=== PATIENT | female | born 1940 | race Caucasian/White ===

== ENCOUNTER → 2019-12-21 12:15 | Outpatient (CLI) | payer MEDICARE, SELFPAY | PROVIDERS: Referring Provider Family Medicine; Visit Provider Family Medicine | DX: Z03.818 Encounter for observation for suspected exposure to other biological agents ruled out (principal) | CPT/HCPCS: 87635; G2023; U0004 ==

== ENCOUNTER → 2020-02-07 05:00 | Outpatient (REF) | payer MEDICARE, SELFPAY ==
[2020-02-07 08:23] LABS: Hematocrit 34.6 % (37-47); Hemoglobin 10.8 g/dL (12.0-15.0); Mean Corp Hgb Conc 31.2 g/dL (32-36); Mean Corpuscular Hgb 29.4 pg (27.0-32.0); Mean Corpuscular Volume 94.3 fL (81-99); Mean Platelet Vol. 10.6 fl (6.2-12.0); Platelet Count 269 K/mm3 (150-450); RBC Distribution Width CV 12.5 % (11.6-14.6); RBC Distribution Width SD 43.1 fl (35.1-43.9); Red Blood Count 3.67 M/mm3 (4.2-5.4); White Blood Count 6.3 K/mm3 (4.4-11.0)
[2020-02-07 08:35] LABS: ALB/GLOB Ratio 0.9 RATIO (0.9-2.4); AST(SGOT) 12 U/L (15-37); Alanine Aminotransfer ALT/SGPT 20 U/L (13-56); Albumin, Serum 3.1 g/dL (3.2-5.0); Alkaline Phosphatase 67 U/L (45-117); Anion Gap 4 (5-15); BUN 27 mg/dL (7-18); BUN/Creat Ratio 31.7 RATIO (10-20); Calcium,Total 9.2 mg/dL (8.5-10.1); Chloride 108 mmol/L (98-107); Creatinine, Serum 0.85 mg/dL (0.55-1.02); EST Glomerular Filtration Rate 68 mL/min (>60); Est Glom Filt Rate - Afr Amer 83 mL/min (>60); Globulin 3.4 g/dL (2.2-4.2); Glucose 123 mg/dL (74-106); Potassium 4.2 mmol/L (3.5-5.1); Protein, Total 6.5 g/dL (6.4-8.2); Sodium Level 140 mmol/L (136-145)
[2020-02-07 08:54] LABS: Vitamin D,25 Hydroxy 67.5 ng/mL
== END ==
LOC: OLS.ACH 05:00
PROVIDERS: Visit Provider Family Medicine
DX: E11.22 Type 2 diabetes mellitus with diabetic chronic kidney disease (principal); N18.3 Chronic kidney disease, stage 3 (moderate); D63.1 Anemia in chronic kidney disease
CPT/HCPCS: 36415; 80053; 82306; 83036; 85027

== ENCOUNTER → 2020-04-26 08:32 | Outpatient (REF) | payer MEDICARE, SELFPAY | LOC: LABSPEC 08:32 | DX: Z11.59 Encounter for screening for other viral diseases (principal) | CPT/HCPCS: 87635; U0003 ==

== ENCOUNTER → 2020-05-03 05:00 | Outpatient (REF) | payer MEDICARE, SELFPAY | LOC: OLS.ACH 05:00 | DX: Z11.59 Encounter for screening for other viral diseases (principal) | CPT/HCPCS: 87635; U0003 ==

== ENCOUNTER → 2020-05-08 11:06 | Outpatient (REF) | payer MEDICARE, SELFPAY | LOC: OLS.ACH 11:06 | PROVIDERS: Visit Provider Family Medicine | DX: Z11.59 Encounter for screening for other viral diseases (principal) | CPT/HCPCS: 87635; U0003 ==

== ENCOUNTER → 2020-05-10 23:00 | Outpatient (REF) | payer MEDICARE, SELFPAY ==
[2020-05-10 02:55] LABS: Probe Check PASS; Specimen Processing Control PASS
== END ==
LOC: OLS.ACH 23:00
DX: Z03.818 Encounter for observation for suspected exposure to other biological agents ruled out (principal)
CPT/HCPCS: 87635; U0003

== ENCOUNTER → 2020-05-11 07:05 | Outpatient (REF) | payer MEDICARE, SELFPAY | LOC: OLS.ACH 07:05 | DX: Z11.59 Encounter for screening for other viral diseases (principal) | CPT/HCPCS: 87635; U0003 ==

== ENCOUNTER → 2020-05-15 10:20 | Outpatient (REF) | payer MEDICARE, SELFPAY | LOC: OLS.ACH 10:20 | PROVIDERS: Visit Provider Family Medicine | DX: Z03.818 Encounter for observation for suspected exposure to other biological agents ruled out (principal) | CPT/HCPCS: 87635; U0003 ==

== ENCOUNTER → 2020-05-19 10:18 | Outpatient (REF) | payer MEDICARE, SELFPAY | LOC: OLS.ACH 10:18 | PROVIDERS: Referring Provider Family Medicine; Visit Provider Family Medicine | DX: Z03.818 Encounter for observation for suspected exposure to other biological agents ruled out (principal) | CPT/HCPCS: 87635; U0003 ==

== ENCOUNTER → 2020-05-22 14:06 | Outpatient (REF) | payer MEDICARE, SELFPAY | LOC: OLS.ACH 14:06 | PROVIDERS: Referring Provider Family Medicine; Visit Provider Family Medicine | DX: Z03.818 Encounter for observation for suspected exposure to other biological agents ruled out (principal) | CPT/HCPCS: 87635; U0003 ==

== ENCOUNTER → 2020-07-25 08:22 | Outpatient (REF) | payer MEDICARE, SELFPAY | LOC: OLS.ACH 08:22 | PROVIDERS: PCP Family Medicine; Visit Provider Family Medicine | DX: Z03.818 Encounter for observation for suspected exposure to other biological agents ruled out (principal) | CPT/HCPCS: 87635; U0003 ==

== ENCOUNTER → 2020-08-08 08:44 | Outpatient (REF) | payer MEDICARE, SELFPAY | LOC: OLS.ACH 08:44 | PROVIDERS: PCP Family Medicine; Referring Provider Family Medicine; Visit Provider Family Medicine | DX: Z03.818 Encounter for observation for suspected exposure to other biological agents ruled out (principal) | CPT/HCPCS: 87635; U0003 ==

== ENCOUNTER → 2020-08-22 17:17 | Outpatient (REF) | payer MEDICARE, SELFPAY | LOC: OLS.ACH 17:17 | PROVIDERS: PCP Family Medicine; Referring Provider Family Medicine; Visit Provider Family Medicine | DX: Z03.818 Encounter for observation for suspected exposure to other biological agents ruled out (principal) | CPT/HCPCS: 87635; U0005; U0003 ==

== ENCOUNTER → 2020-09-05 09:42 | Outpatient (REF) | payer MEDICARE, SELFPAY | LOC: OLS.ACH 09:42 | PROVIDERS: PCP Family Medicine | DX: Z03.818 Encounter for observation for suspected exposure to other biological agents ruled out (principal) | CPT/HCPCS: 87635; U0003 ==

== ENCOUNTER → 2020-10-03 12:11 | Outpatient (REF) | payer MEDICARE, SELFPAY | LOC: OLS.ACH 12:11 | PROVIDERS: PCP Family Medicine; Referring Provider Family Medicine; Visit Provider Family Medicine | DX: Z03.818 Encounter for observation for suspected exposure to other biological agents ruled out (principal) | CPT/HCPCS: 87635; U0005; U0003 ==

== ENCOUNTER → 2020-10-13 05:00 | Outpatient (REF) | payer MEDICARE, SELFPAY ==
[2020-10-13 08:03] LABS: Hematocrit 34.4 % (37-47); Hemoglobin 11.7 g/dL (12.0-15.0); Mean Corpuscular Volume 91.2 fL (81-99); Mean Platelet Vol. 10.2 fl (6.2-12.0); Platelet Count 275 K/mm3 (150-450); RBC Distribution Width CV 12.8 % (11.6-14.6); RBC Distribution Width SD 41.8 fl (35.1-43.9); Red Blood Count 3.77 M/mm3 (4.2-5.4)
[2020-10-13 08:18] LABS: Hemoglobin A1c 7.5 % (3.8-5.6)
[2020-10-13 08:26] LABS: ALB/GLOB Ratio 0.9 RATIO (0.9-2.4); AST(SGOT) 15 U/L (15-37); Alanine Aminotransfer ALT/SGPT 18 U/L (13-56); Albumin, Serum 3.3 g/dL (3.2-5.0); Alkaline Phosphatase 78 U/L (45-117); Anion Gap 4 (5-15); BUN 25 mg/dL (7-18); BUN/Creat Ratio 25.8 RATIO (10-20); Calcium,Total 9.3 mg/dL (8.5-10.1); Chloride 109 mmol/L (98-107); Cholesterol 125 mg/dL (200); Creatinine, Serum 0.97 mg/dL (0.55-1.02); EST Glomerular Filtration Rate 59 mL/min (>60); Est Glom Filt Rate - Afr Amer 71 mL/min (>60); Globulin 3.5 g/dL (2.2-4.2); Glucose 143 mg/dL (74-106); High Density Lipoprotein 76 mg/dL; Potassium 4.7 mmol/L (3.5-5.1); Protein, Total 6.8 g/dL (6.4-8.2); Sodium Level 141 mmol/L (136-145); Thyroid Stim Hormone (TSH) 2.02 uIU/mL (0.358-3.74); Triglycerides 77 mg/dL; Very Low Density Lipoprotein 15 mg/dL (5-40)
[2020-10-13 09:11] LABS: Vitamin D,25 Hydroxy 59.1 ng/mL
== END ==
LOC: OLS.ACH 05:00
PROVIDERS: PCP Family Medicine
DX: E11.22 Type 2 diabetes mellitus with diabetic chronic kidney disease (principal); I12.9 Hypertensive chronic kidney disease with stage 1 through stage 4 chronic kidney disease, or unspecified chronic kidney disease; D64.9 Anemia, unspecified; N18.30 Chronic kidney disease, stage 3 unspecified
CPT/HCPCS: 36415; 80053; 80061; 82306; 83036; 84443; 85027

== ENCOUNTER → 2020-10-17 10:00 | Outpatient (REF) | payer MEDICARE, SELFPAY | LOC: OLS.ACH 10:00 | PROVIDERS: PCP Family Medicine | DX: Z03.818 Encounter for observation for suspected exposure to other biological agents ruled out (principal) | CPT/HCPCS: 87635; U0005; U0003 ==

== ENCOUNTER → 2021-02-05 05:00 | Outpatient (REF) | payer MEDICARE, SELFPAY ==
[2021-02-05 10:18] LABS: Absolute Lymphocyte Count 2.09 X10^3/uL (0.83-4.51); Absolute Neutrophil Count 4.2 X10^3/uL (2.0-7.7); Basophil# 0.03 X10^3/uL; Basophil% 0.4 % (0-1); Eosinophil# 0.57 X10^3/uL; Eosinophils% 7.6 % (0-5); Hematocrit 34.3 % (37-47); Hemoglobin 10.9 g/dL (12.0-15.0); Lymphocyte # 2.09 X10^3/ul (0.83-4.51); Lymphocyte % 27.7 % (19-41); Mean Corp Hgb Conc 31.8 g/dL (32-36); Mean Corpuscular Volume 91.2 fL (81-99); Mean Platelet Vol. 10.8 fl (6.2-12.0); Monocyte# 0.62 X10^3/uL; Monocyte% 8.2 % (0-10); NRBC Flagged by Analyzer 0 % (0-5); Neutrophil % 55.7 % (47-70); Platelet Count 303 K/mm3 (150-450); RBC Distribution Width CV 12.8 % (11.6-14.6); RBC Distribution Width SD 42.1 fl (35.1-43.9); Red Blood Count 3.76 M/mm3 (4.2-5.4); White Blood Count 7.5 K/mm3 (4.4-11.0)
[2021-02-05 11:02] LABS: AST(SGOT) 14 U/L (15-37); Alanine Aminotransfer ALT/SGPT 16 U/L (13-56); Albumin, Serum 3.4 g/dL (3.2-5.0); Alkaline Phosphatase 79 U/L (45-117); Anion Gap 7 (5-15); BUN 30 mg/dL (7-18); BUN/Creat Ratio 30.8 RATIO (10-20); Chloride 107 mmol/L (98-107); Creatinine, Serum 0.97 mg/dL (0.55-1.02); EST Glomerular Filtration Rate 58 mL/min (>60); Est Glom Filt Rate - Afr Amer 71 mL/min (>60); Globulin 3.4 g/dL (2.2-4.2); Glucose 136 mg/dL (74-106); Potassium 4.5 mmol/L (3.5-5.1); Protein, Total 6.8 g/dL (6.4-8.2); Sodium Level 140 mmol/L (136-145); Thyroid Stim Hormone (TSH) 1.38 uIU/mL (0.358-3.74)
[2021-02-05 11:42] LABS: Vitamin D,25 Hydroxy 46.3 ng/mL
== END ==
LOC: OLS.ACH 05:00
PROVIDERS: PCP Family Medicine
DX: I12.9 Hypertensive chronic kidney disease with stage 1 through stage 4 chronic kidney disease, or unspecified chronic kidney disease (principal); E11.22 Type 2 diabetes mellitus with diabetic chronic kidney disease; D63.1 Anemia in chronic kidney disease; E01.1 Iodine-deficiency related multinodular (endemic) goiter; M15.0 Primary generalized (osteo)arthritis; E55.9 Vitamin D deficiency, unspecified
CPT/HCPCS: 36415; 80053; 82306; 83036; 84443; 85025

== ENCOUNTER → 2021-06-04 04:00 | Outpatient (REF) | payer MEDICARE, SELFPAY ==
[2021-06-04 08:31] LABS: Absolute Lymphocyte Count 2.27 X10^3/uL (0.83-4.51); Absolute Neutrophil Count 3.7 X10^3/uL (2.0-7.7); Basophil# 0.03 X10^3/uL; Basophil% 0.4 % (0-1); Eosinophil# 0.54 X10^3/uL; Eosinophils% 7.6 % (0-5); Hematocrit 35.2 % (37-47); Lymphocyte # 2.27 X10^3/ul (0.83-4.51); Lymphocyte % 31.9 % (19-41); Mean Corp Hgb Conc 31.3 g/dL (32-36); Mean Corpuscular Hgb 28.9 pg (27.0-32.0); Mean Corpuscular Volume 92.6 fL (81-99); Mean Platelet Vol. 10.6 fl (6.2-12.0); Monocyte# 0.55 X10^3/uL; Monocyte% 7.7 % (0-10); NRBC Flagged by Analyzer 0 % (0-5); Neutrophil % 52.1 % (47-70); Platelet Count 282 K/mm3 (150-450); RBC Distribution Width CV 12.4 % (11.6-14.6); RBC Distribution Width SD 42.4 fl (35.1-43.9); White Blood Count 7.1 K/mm3 (4.4-11.0)
[2021-06-04 09:00] LABS: ALB/GLOB Ratio 0.8 RATIO (0.9-2.4); AST(SGOT) 12 U/L (15-37); Alanine Aminotransfer ALT/SGPT 19 U/L (13-56); Albumin, Serum 2.9 g/dL (3.2-5.0); Alkaline Phosphatase 73 U/L (45-117); Anion Gap 6 (5-15); BUN 27 mg/dL (7-18); BUN/Creat Ratio 26.2 RATIO (10-20); Calcium,Total 9.1 mg/dL (8.5-10.1); Chloride 108 mmol/L (98-107); Creatinine, Serum 1.03 mg/dL (0.55-1.02); EST Glomerular Filtration Rate 55 mL/min (>60); Est Glom Filt Rate - Afr Amer 66 mL/min (>60); Globulin 3.6 g/dL (2.2-4.2); Glucose 162 mg/dL (74-106); Potassium 4.8 mmol/L (3.5-5.1); Protein, Total 6.5 g/dL (6.4-8.2); Sodium Level 140 mmol/L (136-145); Thyroid Stim Hormone (TSH) 2.47 uIU/mL (0.358-3.74)
[2021-06-04 09:40] LABS: Hemoglobin A1c 8.5 % (3.8-5.6)
== END ==
LOC: OLS.ACH 04:00
PROVIDERS: PCP Family Medicine
DX: E11.22 Type 2 diabetes mellitus with diabetic chronic kidney disease (principal); N18.9 Chronic kidney disease, unspecified; D63.1 Anemia in chronic kidney disease; R01.1 Cardiac murmur, unspecified
CPT/HCPCS: 36415; 80053; 83036; 84443; 85025

== ENCOUNTER → 2021-11-07 | Outpatient (REF) | payer MEDICARE, SELFPAY ==
[2021-11-07 07:40] LABS: Hematocrit 32.9 % (37-47); Hemoglobin 10.7 g/dL (12.0-15.0); Mean Corp Hgb Conc 32.5 g/dL (32-36); Mean Corpuscular Hgb 29.7 pg (27.0-32.0); Mean Corpuscular Volume 91.4 fL (81-99); Mean Platelet Vol. 10.5 fl (6.2-12.0); Platelet Count 302 K/mm3 (150-450); RBC Distribution Width CV 12.4 % (11.6-14.6); RBC Distribution Width SD 41.6 fl (35.1-43.9); White Blood Count 8.1 K/mm3 (4.4-11.0)
[2021-11-07 08:02] LABS: ALB/GLOB Ratio 0.9 RATIO (0.9-2.4); AST(SGOT) 15 U/L (15-37); Alanine Aminotransfer ALT/SGPT 18 U/L (13-56); Albumin, Serum 3.1 g/dL (3.2-5.0); Alkaline Phosphatase 68 U/L (45-117); Anion Gap 3 (5-15); BUN 28 mg/dL (7-18); BUN/Creat Ratio 26.9 RATIO (10-20); Calcium,Total 9.1 mg/dL (8.5-10.1); Chloride 110 mmol/L (98-107); Creatinine, Serum 1.04 mg/dL (0.55-1.02); EST Glomerular Filtration Rate 54 mL/min (>60); Est Glom Filt Rate - Afr Amer 65 mL/min (>60); Globulin 3.3 g/dL (2.2-4.2); Glucose 177 mg/dL (74-106); Potassium 4.7 mmol/L (3.5-5.1); Protein, Total 6.4 g/dL (6.4-8.2); Sodium Level 140 mmol/L (136-145)
[2021-11-07 08:22] LABS: Hemoglobin A1c 8.8 % (3.8-5.6)
== END | disposition home or self-care (01) ==
LOC: OLS.ACH 04:00
PROVIDERS: PCP Family Medicine
DX: E11.9 Type 2 diabetes mellitus without complications (principal)
CPT/HCPCS: 36415; 80053; 83036; 84443; 85027

== ENCOUNTER → 2022-05-27 | Outpatient (REF) | payer MEDICARE, SELFPAY ==
[2022-05-27 07:30] LABS: Hematocrit 33.9 % (37-47); Hemoglobin 10.7 g/dL (12.0-15.0); Mean Corp Hgb Conc 31.6 g/dL (32-36); Mean Corpuscular Hgb 29.7 pg (27.0-32.0); Mean Corpuscular Volume 94.2 fL (81-99); Mean Platelet Vol. 10.6 fl (6.2-12.0); Platelet Count 293 K/mm3 (150-450); RBC Distribution Width CV 12.5 % (11.6-14.6); RBC Distribution Width SD 43.5 fl (35.1-43.9); White Blood Count 8.4 K/mm3 (4.4-11.0)
[2022-05-27 08:06] LABS: AST(SGOT) 14 U/L (15-37); Alanine Aminotransfer ALT/SGPT 19 U/L (13-56); Albumin, Serum 3.2 g/dL (3.2-5.0); Alkaline Phosphatase 65 U/L (45-117); Anion Gap 9 (5-15); BUN 32 mg/dL (7-18); BUN/Creat Ratio 29.9 RATIO (10-20); Calcium,Total 9.2 mg/dL (8.5-10.1); Chloride 106 mmol/L (98-107); Creatinine, Serum 1.07 mg/dL (0.55-1.02); EST Glomerular Filtration Rate 52 mL/min (>60); Est Glom Filt Rate - Afr Amer 63 mL/min (>60); Globulin 3.2 g/dL (2.2-4.2); Glucose 205 mg/dL (74-106); Potassium 4.3 mmol/L (3.5-5.1); Protein, Total 6.4 g/dL (6.4-8.2); Sodium Level 139 mmol/L (136-145)
[2022-05-27 08:38] LABS: Vitamin D,25 Hydroxy 70.8 ng/mL
== END ==
LOC: OLS.ACH 05:00
PROVIDERS: PCP Family Medicine
DX: E11.22 Type 2 diabetes mellitus with diabetic chronic kidney disease (principal); M15.0 Primary generalized (osteo)arthritis; N18.9 Chronic kidney disease, unspecified; E55.9 Vitamin D deficiency, unspecified
CPT/HCPCS: 36415; 80053; 82306; 85027

== ENCOUNTER → 2022-11-04 | Outpatient (REF) | payer MEDICARE, SELFPAY ==
[2022-11-04 10:46] LABS: Hematocrit 36.4 % (37-47); Hemoglobin 11.3 g/dL (12.0-15.0); Mean Corpuscular Hgb 29.4 pg (27.0-32.0); Mean Corpuscular Volume 94.5 fL (81-99); Mean Platelet Vol. 10.8 fl (6.2-12.0); Platelet Count 313 K/mm3 (150-450); RBC Distribution Width CV 13.2 % (11.6-14.6); RBC Distribution Width SD 45.4 fl (35.1-43.9); Red Blood Count 3.85 M/mm3 (4.2-5.4); White Blood Count 9.1 K/mm3 (4.4-11.0)
[2022-11-04 11:07] LABS: Vitamin D,25 Hydroxy 66.2 ng/mL
[2022-11-04 11:11] LABS: ALB/GLOB Ratio 0.9 RATIO (0.9-2.4); AST(SGOT) 23 U/L (15-37); Alanine Aminotransfer ALT/SGPT 33 U/L (13-56); Albumin, Serum 3.3 g/dL (3.2-5.0); Alkaline Phosphatase 73 U/L (45-117); Anion Gap 3 (5-15); BUN 30 mg/dL (7-18); BUN/Creat Ratio 31.4 RATIO (10-20); Calcium,Total 9.2 mg/dL (8.5-10.1); Chloride 110 mmol/L (98-107); Cholesterol 125 mg/dL (200); Creatinine, Serum 0.95 mg/dL (0.55-1.02); EST Glomerular Filtration Rate 60 mL/min (>60); Est Glom Filt Rate - Afr Amer 72 mL/min (>60); Globulin 3.6 g/dL (2.2-4.2); Glucose 129 mg/dL (74-106); High Density Lipoprotein 63 mg/dL; Potassium 4.5 mmol/L (3.5-5.1); Protein, Total 6.9 g/dL (6.4-8.2); Sodium Level 142 mmol/L (136-145); Thyroid Stim Hormone (TSH) 2.48 uIU/mL (0.358-3.74); Triglycerides 66 mg/dL; Very Low Density Lipoprotein 13 mg/dL (5-40)
== END ==
LOC: OLS.ACH2 04:00
PROVIDERS: PCP Family Medicine
DX: E11.22 Type 2 diabetes mellitus with diabetic chronic kidney disease (principal); I12.9 Hypertensive chronic kidney disease with stage 1 through stage 4 chronic kidney disease, or unspecified chronic kidney disease; D63.1 Anemia in chronic kidney disease; N18.9 Chronic kidney disease, unspecified
CPT/HCPCS: 36415; 80053; 80061; 82306; 84443; 85027

== ENCOUNTER → 2023-05-05 | Outpatient (REF) | payer MEDICARE, SELFPAY ==
[2023-05-05 09:10] LABS: Hematocrit 33.5 % (37-47); Hemoglobin 10.5 g/dL (12.0-15.0); Mean Corp Hgb Conc 31.3 g/dL (32-36); Mean Corpuscular Hgb 29.7 pg (27.0-32.0); Mean Corpuscular Volume 94.6 fL (81-99); Mean Platelet Vol. 10.8 fl (6.2-12.0); Platelet Count 283 K/mm3 (150-450); RBC Distribution Width CV 12.5 % (11.6-14.6); RBC Distribution Width SD 43.7 fl (35.1-43.9); Red Blood Count 3.54 M/mm3 (4.2-5.4); White Blood Count 8.2 K/mm3 (4.4-11.0)
[2023-05-05 09:24] LABS: Vitamin D,25 Hydroxy 57.1 ng/mL
[2023-05-05 09:33] LABS: AST(SGOT) 20 U/L (15-37); Alanine Aminotransfer ALT/SGPT 34 U/L (13-56); Albumin, Serum 3.2 g/dL (3.2-5.0); Alkaline Phosphatase 65 U/L (45-117); Anion Gap 6 (5-15); BUN 35 mg/dL (7-18); BUN/Creat Ratio 37.4 RATIO (10-20); Chloride 109 mmol/L (98-107); Cholesterol 115 mg/dL (200); Creatinine, Serum 0.94 mg/dL (0.55-1.02); EST Glomerular Filtration Rate 61 mL/min (>60); Est Glom Filt Rate - Afr Amer 74 mL/min (>60); Globulin 3.3 g/dL (2.2-4.2); Glucose 131 mg/dL (74-106); High Density Lipoprotein 62 mg/dL; Potassium 4.1 mmol/L (3.5-5.1); Protein, Total 6.5 g/dL (6.4-8.2); Sodium Level 140 mmol/L (136-145); Thyroid Stim Hormone (TSH) 2.83 uIU/mL (0.358-3.74); Triglycerides 90 mg/dL; Very Low Density Lipoprotein 18 mg/dL (5-40)
== END ==
LOC: OLS.ACH2 04:00
PROVIDERS: PCP Family Medicine
DX: I12.9 Hypertensive chronic kidney disease with stage 1 through stage 4 chronic kidney disease, or unspecified chronic kidney disease (principal); D63.1 Anemia in chronic kidney disease; E11.22 Type 2 diabetes mellitus with diabetic chronic kidney disease; N18.9 Chronic kidney disease, unspecified; E55.9 Vitamin D deficiency, unspecified
CPT/HCPCS: 36415; 80053; 80061; 82306; 84443; 85027

== ENCOUNTER → 2023-08-15 | Outpatient (REF) | payer MEDICARE, SELFPAY ==
--- OUTSIDE RECORDS SUMMARY | 2023-08-15 04:28 | XMS RPT_ITS | CCD ---
Author Name Unknown Address Formerly [facility] [address] [place] [address] Organization [facility] Care Team Providers Care Retail Security Professional Name Role Phone DR ANTONIO HYDE DO Primary Care Physician Allergies Allergy Classification Reported Allergen(s) Allergy Type Date of Onset Reaction(s) Facility (1 source) Adhesive bandage Allergy to substance [facility] (1 source) Morphine; Translations: [morphine] Drug Allergy [facility] (1 source) Penicillin; Translations: [penicillin] Drug Allergy [facility] (1 source) [place] Propensity to adverse reactions to food [facility] (1 source) Sulfonamides (Antibiotic); Translations: [sulfa drugs] Drug allergy [facility] (1 source) Aloes - chemical (substance); Translations: [aloe derivatives] Drug allergy [facility] (disorder) [facility] Medications Current Medications Medication Drug Class(es) Dates Sig (Normalized) Sig (Original) atenolol 25 mg oral tablet (1 source) beta-Adrenergic Melissa Start: 02-14-2022 take 1 tablet by mouth once daily atenolol 25 mg oral tablet See Instructions, TAKE 1 TABLET BY MOUTH EVERY DAY, # 90 tab(s), 4 Refill(s), Pharmacy: [facility]acy #[id number], 152, cm, 02/14/22 13:32:00 EDT, Height, kg, 02/14/22 13:32:00 EDT, Dosing Weight Start Date: 02/14/22 Status: Ordered atorvastatin 10 mg oral tablet (1 source) HMG-CoA Reductase Inhibitor Start: 02-14-2022 atorvastatin 10 mg oral tablet Dose : 10 mg = 1 tab(s), Oral, qDay, # 90 tab(s), 3 Refill(s), Pharmacy: [facility]/pharmacy #[id number], 152, cm, 02/14/22 13:32:00 EDT, Height, kg, 02/14/22 13:32:00 EDT, Dosing Weight Start Date: 02/14/22 Status: Ordered calcium carbonate 1500 mg oral tablet (1 source) Start: 12-31-2018 calcium (as carbonate) 600 mg oral tablet Dose : 600 mg = 1 tab(s), Oral, qDay, 0 Refill(s) Start Date: 12/31/18 Status: Ordered fluticasone propionate 0.05 mg/actuat metered dose nasal spray (1 source) Corticosteroid Start: 06-12-2021 take 1 dose nasal route once daily in the morning Flonase 50 mcg/inh nasal spray Dose = 1 spray(s), Nostril, each, qAM, # 1 EA, 3 Refill(s), [id number], 152, cm, 06/12/21 13:29:00 EDT, Height, kg, 06/12/21 13:29:00 EDT, Dosing Weight Start Date: 06/12/21 Status: Ordered glipiZIDE er 2.5 mg 24 hr extended release oral tablet (1 source) Sulfonylurea Start: 02-28-2022 glipiZIDE 2.5 mg oral tablet, extended release Dose : 2.5 mg = 1 tab(s), Oral, qDayM, # 30 tab(s), 0 Refill(s), [id number], 152, cm, 02/14/22 13:32:00 EDT, Height Start Date: 02/28/22 Status: Ordered lisinopril 5 mg oral tablet (1 source) Angiotensin Converting Enzyme Inhibitor Start: 10-11-2021 lisinopril 5 mg oral tablet Dose : 5 mg = 1 tab(s), Oral, qDay, # 90 tab(s), 3 Refill(s), Pharmacy: [facility]/pharmacy #[id number], 152, cm, 10/11/21 14:29:00 EST, Height, kg, 10/11/21 14:29:00 EST, Dosing Weight Start Date: 10/11/21 Status: Ordered metFORMIN hydrochloride 500 mg oral tablet (1 source) Biguanide Start: 11-08-2021 MetFORMIN (Eqv-Glucophage XR) 500 mg oral tablet, EXTENDED RELEASE Dose : 1,000 mg = 2 tab(s), Oral, qDay, # 180 tab(s), 1 Refill(s), [id number], 152, cm, 10/11/21 14:29:00 EST, Height, kg, 10/11/21 14:29:00 EST, Dosing Weight Start Date: 11/08/21 Status: Ordered montelukast 10 mg oral tablet (1 source) Leukotriene Receptor Antagonist Start: 02-14-2022 montelukast 10 mg oral tablet Dose : 10 mg = 1 tab(s), Oral, qDay, # 90 tab(s), 3 Refill(s), Pharmacy: [facility]/pharm[facility] #[id number], 152, cm, 02/14/22 13:32:00 EDT, Height, kg, 02/14/22 13:32:00 EDT, Dosing Weight Start Date: 02/14/22 Status: Ordered nystatin 100 unt/mg topical powder (1 source) Polyene Antifungal Start: 02-09-2021 nystatin 100,000 units/g topical powder Apply 1 madai, Topical, TID, # 1 EA, 1 Refill(s), [id number], Powder, 152, cm, 12/19/20 13:24:00 EDT, Height, 116.6, kg, 02/09/21 13:30:00 EDT, Dosing Weight Start Date: 02/09/21 Status: Ordered omeprazole 20 mg delayed release oral capsule (1 source) Proton Pump Inhibitor Start: 06-12-2021 omeprazole 20 mg oral delayed release capsule Dose : 20 mg = 1 cap(s), Oral, qDay, # 90 cap(s), 3 Refill(s), Pharmacy: [facility]/pharm[facility] #[id number], 152, cm, 06/12/21 13:29:00 EDT, Height, kg, 06/12/21 13:29:00 EDT, Dosing Weight Start Date: 06/12/21 Status: Ordered trihexyphenidyl hydrochloride 2 mg oral tablet (1 source) Start: 02-14-2022 trihexyphenidyl 2 mg oral tablet Dose : 2 mg = 1 tab(s), Oral, TID, TAKE 1 TABLET BY MOUTH THREE TIMES A DAY, # 270 tab(s), 3 Refill(s), Pharmacy: [facility]/pharmacy #[id number], 152, cm, 02/14/22 13:32:00 EDT, Height, kg, 02/14/22 13:32:00 EDT, Dosing Weight Start Date: 02/14/22 Status: Ordered Vitamin D3 2000 intl units oral tablet (1 source) Start: 12-31-2018 Vitamin D3 2000 intl units oral tablet Dose : 2,000 unit(s) = 1 tab(s), Oral, Daily, 0 Refill(s) Start Date: 12/31/18 Status: Ordered Completed/Discontinued Medications Medication Drug Class(es) Dates Sig (Normalized) Sig (Original) fluticasone / salmeterol (1 source) Corticosteroid, beta2-Adrenergic Agonist Start: 10-11-2021 take 1 puff(s) by mouth twice daily Advair Diskus 250 mcg-50 mcg inhalation powder Dose = 1 puff(s), Inhalation, BID, TAKE 1 PUFF BY MOUTH TWICE A DAY, # 3 EA, 1 Refill(s), Pharmacy: [id number], 152, cm, 10/11/21 14:29:00 EST, Height, kg, 10/11/21 14:29:00 EST, Dosing Weight Start Date: 10/11/21 Status: Ordered Problems Problem Classification Problem Date Documented Da te Episodic/Chronic Acute myocardial infarction (1 source) Myocardial infarction 10-13-2019 Chronic Results Test Name Value Interpretation Reference Range Facil ity Encounters Encounter Date Encounter Type Care Provider Facility Start: 03-20-2022 End: 03-20-2022 Patient encounter procedure MARC DOYLE MD [facility] Procedures Date Procedure Procedure Detail Performing Clinician Start: 08-11-1984 Appendix structure ( body structure) MARC DOYLE MD Start: 08-11-1984 Hysterectomy WESLEY DOYLE MD Bone densty 1/> site s dual photon absorptiometr MARC DOYLE MD Immunizations Immunization Date Immunization Notes Care Provider Fa cility 06-08-2021 SARS-CoV-2 (COVID-19 ) [id number] vaccine MARC DOYLE MD [facility] [place] Social History Date Type Detail Facility Start: 12-31-2018 Tobacco smoking status Never s moked tobacco (finding) [facility] Sex Assigned At Female [facility] Progress note 10-12-2020 Note Date & Type Note Facility 10-12-2020 Note HNO ID: [id number] Author: Tremaine Boss Service: ? Author Type: Paint Dipper Type: Progress Notes Filed: 10/17/2020 9:18 AM Note Text: POPULATION HEALTH NAVIGATION OUTREACH Action/FYI Attempted to contact patient on 10/12/2020 Result: no answer at patient's phone - mailed letter Contact made with patient or family member? NO Pt identified by name and : NO Outreach Outcome/Action Unable to reach patient: Phone number not valid / voicemail full Letter mailed Reason for Outreach Attribution: Provider Off-boarding Payer: Payor: [employer] MEDICARE / Plan: [employer] PLUS / Product Type: HMO / Care Gap Reviewed:: Annual Wellness visit Diabetic Eye Exam HBA1C Nephropathy (Albumin/Creatinine) Urine Flu vaccine Reminder: Reminder note to check Health Maintenance for items below Health Maintenance items due: DIABETIC FOOT EXAM due on 1950 DEPRESSION SCREENING due on 1952 SHINGRIX VACCINE(1 of 2) due on 1990 ADVANCE DIRECTIVE DISCUSSION due on 2005 DILATED RETINAL EXAM due on 11/30/2014 HBA1C due on 06/15/2016 URINE ALBUMIN:CREATININE RATIO due on 12/13/2016 LDL CHOLESTEROL due on 12/13/2016 INFLUENZA(1) due on 04/11/2020 Advanced Directives Completed: Have you ever planned for future healthcare decisions with a power of ordnance officer, living will, or advance directives? N/a Referrals: N/A Message Sent to Practice: NO Navigation Signature: Tremaine Boss, Population Health Navigator October 12, 2020 3:08 PM [facility] Progress note 10-11-2020 Note Date & Type Note Facility 10-11-2020 Note HNO ID: [id number] Author: Tremaine Boss Service: ? Author Type: Paint Dipper Type: Progress Notes Filed: 10/12/2020 3:10 PM Note Text: POPULATION HEALTH NAVIGATION OUTREACH Action/FYI Attempted to contact patient on 10/11/2020 Result: no answer at patient's phone - in regards to realigning patient with a new PCP, if patient does not already have an existing one - if patient has existing PCP, PCP field needs updated Contact made with patient or family member? NO Pt identified by name and : NO Outreach Outcome/Action Unable to reach patient: Phone number not valid / voicemail full Reason for Outreach Attribution: Provider Off-boarding Payer: Payor: [employer] MEDICARE / Plan: [employer] / Product Type: HMO / Care Gap Reviewed:: Annual Wellness visit Diabetic Eye Exam HBA1C Nephropathy (Albumin/Creatinine) Urine Flu vaccine Reminder: Reminder note to check Health Maintenance for items below Health Maintenance items due: DIABETIC FOOT EXAM due on 1950 DEPRESSION SCREENING due on 1952 SHINGRIX VACCINE(1 of 2) due on 1990 ADVANCE DIRECTIVE DISCUSSION due on 2005 DILATED RETINAL EXAM due on 11/30/2014 HBA1C due on 06/15/2016 URINE ALBUMIN:CREATININE RATIO due on 12/13/2016 LDL CHOLESTEROL due on 12/13/2016 INFLUENZA(1) due on 04/11/2020 Advanced Directives Completed: Have you ever planned for future healthcare decisions with a power of ordnance officer, living will, or advance directives? N/a Referrals: N/A Message Sent to Practice: NO Navigation Signature: Tremaine Boss Population Health Navigator October 11, 2020 12:45 PM [facility] Clinical Note 10-11-2020 Note Date & Type Note Facility 10-11-2020 Note Patient Outreach (AM [facility]) ABDULKADIR CHÁVEZ ([id number]) 1940 F INT Date Time Provider Department 10/11/20 TREMAINE BOSS During your visit today, we recorded the following information about you: Tremaine Boss Population Health Navigator 10/12/2020 3:10 PM Signed POPULATION HEALTH NAVIGATION OUTREACH Action/FYI Attempted to contact patient on 10/11/2020 Result: no answer at patient's phone - in regards to realigning patient with a new PCP, if patient does not already have an existing one - if patient has existing PCP, PCP field needs updated Contact made with patient or family member? NO Pt identified by name and : NO Outreach Outcome/Action Unable to reach patient: Phone number not valid / voicemail full Reason for Outreach Attribution: Provider Off-boarding Payer: Payor: [employer] MEDICARE / Plan: [employer] / Product Type: HMO / Care Gap Reviewed:: Annual Wellness visit Diabetic Eye Exam HBA1C Nephropathy (Albumin/Creatinine) Urine Flu vaccine Reminder: Reminder note to check Health Maintenance for items below Health Maintenance items due: DIABETIC FOOT EXAM due on 1950 DEPRESSION SCREENING due on 1952 SHINGRIX VACCINE(1 of 2) due on 1990 ADVANCE DIRECTIVE DISCUSSION due on 2005 DILATED RETINAL EXAM due on 11/30/2014 HBA1C due on 06/15/2016 URINE ALBUMIN:CREATININE RATIO due on 12/13/2016 LDL CHOLESTEROL due on 12/13/2016 INFLUENZA(1) due on 04/11/2020 Advanced Directives Completed: Have you ever planned for future healthcare decisions with a power of ordnance officer, living will, or advance directives? N/a Referrals: N/A Message Sent to Practice: NO Navigation Signature: Tremaine Boss Population Health Navigator October 11, 2020 12:45 PM Tremaine Boss Population Health Navigator 10/17/2020 9:18 AM Addendum POPULATION HEALTH NAVIGATION OUTREACH Action/FYI Attempted to contact patient on 10/12/2020 Result: no answer at patient's phone - mailed letter Contact made with patient or family member? NO Pt identified by name and : NO Outreach Outcome/Action Unable to reach patient: Phone number not valid / voicemail full Letter mailed Reason for Outreach Attribution: Provider Off-boarding Payer: Payor: [employer] MEDICARE / Plan: [employer] PLUS / Product Type: HMO / Care Gap Reviewed:: Annual Wellness visit Diabetic Eye Exam HBA1C Nephropathy (Albumin/Creatinine) Urine Flu vaccine Reminder: Reminder note to check Health Maintenance for items below Health Maintenance items due: DIABETIC FOOT EXAM due on 1950 DEPRESSION SCREENING due on 1952 SHINGRIX VACCINE(1 of 2) due on 1990 ADVANCE DIRECTIVE DISCUSSION due on 2005 DILATED RETINAL EXAM due on 11/30/2014 HBA1C due on 06/15/2016 URINE ALBUMIN:CREATININE RATIO due on 12/13/2016 LDL CHOLESTEROL due on 12/13/2016 INFLUENZA(1) due on 04/11/2020 Advanced Directives Completed: Have you ever planned for future healthcare decisions with a power of ordnance officer, living will, or advance directives? N/a Referrals: N/A Message Sent to Practice: NO Navigation Signature: Tremaine Boss Population Health Navigator October 12, 2020 3:08 PM Allergies As of Date: 10/11/2020 Noted Allergy Reaction masks [Other] 11/07/2006 Comments: surgery type PENICILLINS 10/16/2005 2 - Rash STRAWBERRY 02/13/2007 2 - Rash SULFA (SULFONAMIDE ANTIBIOTICS) 10/16/2005 tape [Other] 11/07/2006 Date Reviewed: 12/14/2015 Reviewed by: Rosio Nixon Tray Setter - Fully Assessed Reason for Visit: Population Health Navigation Outreach [3910] Cmt: Offboarding Prescriptions as of 10/11/2020 Sig: ALBUTEROL SULFATE HFA 90 MCG/* Inhale 2 Puffs as instructed * CETIRIZINE 10 MG TABLET Take 1 tablet by mouth once d* FLUTICASONE PROPIONATE 50 MCG* Use 2 Sprays in each nostril * TRIHEXYPHENIDYL 2 MG TABLET Take 1 tablet by mouth three * ATENOLOL 25 MG TABLET Take 1 tablet by mouth once d* LOSARTAN 50 MG-HYDROCHLOROTHI* Take 1 tablet by mouth once d* CALCIUM 600 + D(3) 600 MG (1,* Take one(1) tablet daily. 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 Diabetes mellitus type 2, controlled [E11.9] 11/16/2013 06/14/2015 Diabetes mellitus type 2, controlled, without c*03/09/2015 Letter Text Encounter Status:[facility] on 10/12/20 [facility] Evaluation + Plan note Note Date & Type Note Facility Evaluation + Plan note Future Appointments Appointment Date:05/23/2022 01:30:00 PM Scheduled Provider:ANTONIO HYDE DO Location:[facility] Appointment Type:PC OV [facility] Hospital course Narrative Note Date & Type Note Facility Hospital course Narrative No data available for this section [facility] Hospital Discharge instructions Note Date & Type Note Facility Hospital Discharge instructions No data available for this section [facility] Progress note Note Date & Type Note Facility Progress note No data available for this section [facility] Summary Purpose Family History No Family History Records FoundNo Family History Records FoundNo Family History Records Found Advance Directives No Advanced Directives Records FoundNo Advanced Directives Records FoundNo Advanced Directives Records Found Additional Source Comments INFORMATION SOURCE (unrecogn ized section and content) DATE CREATED AUTHOR AUTHOR'S ORGANIZ ATION 09/26/2021 [facility] DATE CREATED AUTHOR AUTHOR'S ORGANIZ ATION 10/18/2021 [facility] ([place]) Care Team (unrecognized sect ion and content) Care Team Personnel Name: RONNY HYDEIE Position: P4 Physician - Primary Care Med Service: Active Provider Member Role: Primary Care Physician Address: Address: [address], [place] [address] Care Team Related Persons Name: RANJITH CÁHVEZ Name: JEF TAVERAS Address: Home [address], [place] [id number] FOR RECORDS PERTAINING TO PATIENTS WHO ARE OR HAVE BEEN ENROLLED IN A CHEMICAL DEPENDENCY/SUBSTANCEABUSE PROGRAM, SOME INFORMATION MAY BE OMITTED. This clinical summary was aggregated from multiple sources. Caution should be exercised in using it in the provision of clinical care. This summary normalizes information from multiple sources, and as a consequence, information in this document may materially change the coding, format and clinical context of patient data. In addition, data may be omitted in some cases. CLINICAL DECISIONS SHOULD BE BASED ON THE PRIMARY CLINICAL RECORDS. [facility] [employer] [facility]. provides no warranty or guarantee of the accuracy or completeness of information in this document.
[2023-08-15 08:01] LABS: Hematocrit 38.2 % (37-47); Hemoglobin 11.7 g/dL (12.0-15.0); Mean Corp Hgb Conc 30.6 g/dL (32-36); Mean Corpuscular Hgb 28.7 pg (27.0-32.0); Mean Corpuscular Volume 93.6 fL (81-99); Mean Platelet Vol. 10.9 fl (6.2-12.0); Platelet Count 360 K/mm3 (150-450); RBC Distribution Width CV 13.7 % (11.6-14.6); RBC Distribution Width SD 46.6 fl (35.1-43.9); Red Blood Count 4.08 M/mm3 (4.2-5.4); White Blood Count 8.4 K/mm3 (4.4-11.0)
== END ==
LOC: OLS.ACH2 05:00
PROVIDERS: PCP Family Medicine
DX: D64.9 Anemia, unspecified (principal)
CPT/HCPCS: 36415; 85027

== ENCOUNTER → 2023-10-30 | Outpatient (REF) | payer MEDICARE, SELFPAY ==
[2023-10-30 09:21] LABS: Vitamin D,25 Hydroxy 61.5 ng/mL
[2023-10-30 09:24] LABS: Hematocrit 35.7 % (37-47); Hemoglobin 11.3 g/dL (12.0-15.0); Mean Corp Hgb Conc 31.7 g/dL (32-36); Mean Corpuscular Hgb 29.6 pg (27.0-32.0); Mean Corpuscular Volume 93.5 fL (81-99); Platelet Count 249 K/mm3 (150-450); RBC Distribution Width CV 13.1 % (11.6-14.6); RBC Distribution Width SD 44.7 fl (35.1-43.9); Red Blood Count 3.82 M/mm3 (4.2-5.4); White Blood Count 6.5 K/mm3 (4.4-11.0)
[2023-10-30 09:58] LABS: AST(SGOT) 21 U/L (15-37); Alanine Aminotransfer ALT/SGPT 23 U/L (13-56); Albumin, Serum 3.2 g/dL (3.2-5.0); Alkaline Phosphatase 55 U/L (45-117); Anion Gap 4 (5-15); BUN 32 mg/dL (7-18); BUN/Creat Ratio 34.4 RATIO (10-20); Calcium,Total 9.3 mg/dL (8.5-10.1); Chloride 110 mmol/L (98-107); Creatinine, Serum 0.93 mg/dL (0.55-1.02); EST Glomerular Filtration Rate 61 mL/min (>60); Est Glom Filt Rate - Afr Amer 74 mL/min (>60); Free T3 2.9 pg/mL (2.18-3.98); Globulin 3.3 g/dL (2.2-4.2); Glucose 131 mg/dL (74-106); Potassium 4.9 mmol/L (3.5-5.1); Protein, Total 6.5 g/dL (6.4-8.2); Sodium Level 140 mmol/L (136-145); T4 Free Direct 1.28 ng/dL (0.76-1.46)
[2023-10-30 10:18] LABS: Hemoglobin A1c 7.4 % (3.8-5.6)
== END ==
LOC: OLS.ACH2 05:00
PROVIDERS: PCP Family Medicine
DX: E11.22 Type 2 diabetes mellitus with diabetic chronic kidney disease (principal); E55.9 Vitamin D deficiency, unspecified; I12.9 Hypertensive chronic kidney disease with stage 1 through stage 4 chronic kidney disease, or unspecified chronic kidney disease; N18.9 Chronic kidney disease, unspecified; D63.1 Anemia in chronic kidney disease
CPT/HCPCS: 36415; 80053; 82306; 83036; 84439; 84481; 85027

== ENCOUNTER → 2024-04-05 | Outpatient (REF) | payer MEDICARE, SELFPAY ==
[2024-04-05 08:13] LABS: Hemoglobin 10.6 g/dL (12.0-15.0); Mean Corp Hgb Conc 32.1 g/dL (32-36); Mean Corpuscular Hgb 29.5 pg (27.0-32.0); Mean Corpuscular Volume 91.9 fL (81-99); Mean Platelet Vol. 11.2 fl (6.2-12.0); Platelet Count 241 K/mm3 (150-450); RBC Distribution Width CV 12.8 % (11.6-14.6); RBC Distribution Width SD 43.8 fl (35.1-43.9); Red Blood Count 3.59 M/mm3 (4.2-5.4); White Blood Count 6.6 K/mm3 (4.4-11.0)
[2024-04-05 09:23] LABS: ALB/GLOB Ratio 0.9 RATIO (0.9-2.4); AST(SGOT) 23 U/L (15-37); Alanine Aminotransfer ALT/SGPT 31 U/L (13-56); Alkaline Phosphatase 62 U/L (45-117); Anion Gap 5 (5-15); BUN 28 mg/dL (7-18); BUN/Creat Ratio 30.1 RATIO (10-20); Calcium,Total 9.4 mg/dL (8.5-10.1); Chloride 109 mmol/L (98-107); Creatinine, Serum 0.93 mg/dL (0.55-1.02); EST Glomerular Filtration Rate 61 mL/min (>60); Est Glom Filt Rate - Afr Amer 74 mL/min (>60); Ferritin 160 ng/mL (8-252); Globulin 3.4 g/dL (2.2-4.2); Glucose 152 mg/dL (74-106); Iron 78 ug/dL (50-170); Potassium 4.7 mmol/L (3.5-5.1); Protein, Total 6.4 g/dL (6.4-8.2); Sodium Level 141 mmol/L (136-145); T4 Total, Thyroxin 10.7 ug/dL (4.8-13.9)
[2024-04-05 09:26] LABS: T3 Total - Triiodothyronine 1.22 ng/mL (0.6-1.81); Vitamin D,25 Hydroxy 65.6 ng/mL
== END ==
LOC: OLS.ACH2 04:00
PROVIDERS: PCP Family Medicine
DX: I12.9 Hypertensive chronic kidney disease with stage 1 through stage 4 chronic kidney disease, or unspecified chronic kidney disease (principal); N18.9 Chronic kidney disease, unspecified; D63.1 Anemia in chronic kidney disease; M85.80 Other specified disorders of bone density and structure, unspecified site
CPT/HCPCS: 36415; 80053; 82306; 82728; 83540; 84436; 84443; 84480; 85027

== ENCOUNTER → 2024-09-20 04:00 | Outpatient (REF) | payer MEDICARE, SELFPAY ==
[2024-09-20 09:43] LABS: Hematocrit 35.8 % (37-47); Hemoglobin 11.6 g/dL (12.0-15.0); Mean Corp Hgb Conc 32.4 g/dL (32-36); Mean Corpuscular Hgb 30.2 pg (27.0-32.0); Mean Corpuscular Volume 93.2 fL (81-99); Mean Platelet Vol. 11.6 fl (6.2-12.0); Platelet Count 268 K/mm3 (150-450); RBC Distribution Width CV 12.6 % (11.6-14.6); Red Blood Count 3.84 M/mm3 (4.2-5.4); White Blood Count 7.6 K/mm3 (4.4-11.0)
[2024-09-20 10:07] LABS: T3 Total - Triiodothyronine 1.12 ng/mL (0.6-1.81); Vitamin D,25 Hydroxy 64.4 ng/mL
[2024-09-20 10:30] LABS: ALB/GLOB Ratio 0.9 RATIO (0.9-2.4); AST(SGOT) 45 U/L (15-37); Alanine Aminotransfer ALT/SGPT 56 U/L (13-56); Albumin, Serum 3.4 g/dL (3.2-5.0); Alkaline Phosphatase 59 U/L (45-117); Anion Gap 6 (5-15); BUN 27 mg/dL (7-18); Calcium,Total 10.1 mg/dL (8.5-10.1); Chloride 109 mmol/L (98-107); Creatinine, Serum 0.84 mg/dL (0.55-1.02); EST Glomerular Filtration Rate 68 mL/min (>60); Est Glom Filt Rate - Afr Amer 83 mL/min (>60); Ferritin 140 ng/mL (8-252); Globulin 3.8 g/dL (2.2-4.2); Glucose 145 mg/dL (74-106); Iron 80 ug/dL (50-170); Iron Binding Capacity,Total 282 ug/dL (250-450); PERCENT IRON SATURATION 28.4 % (15.0-55.0); Potassium 4.6 mmol/L (3.5-5.1); Protein, Total 7.2 g/dL (6.4-8.2); Sodium Level 140 mmol/L (136-145); T4 Total, Thyroxin 10.4 ug/dL (4.8-13.9)
== END ==
LOC: OLS.ACH2 04:00
PROVIDERS: PCP Family Medicine
DX: I12.9 Hypertensive chronic kidney disease with stage 1 through stage 4 chronic kidney disease, or unspecified chronic kidney disease (principal); D63.1 Anemia in chronic kidney disease
CPT/HCPCS: 36415; 80053; 82306; 82728; 83540; 83550; 84436; 84443; 84480; 85027

== ENCOUNTER → 2024-10-25 | Outpatient (REF) | payer MEDICARE, SELFPAY ==
[2024-10-25 09:04] LABS: Hematocrit 37.8 % (37-47); Hemoglobin 12.2 g/dL (12.0-15.0); Mean Corp Hgb Conc 32.3 g/dL (32-36); Mean Corpuscular Hgb 29.9 pg (27.0-32.0); Mean Corpuscular Volume 92.6 fL (81-99); Platelet Count 348 K/mm3 (150-450); RBC Distribution Width CV 12.4 % (11.6-14.6); RBC Distribution Width SD 42.2 fl (35.1-43.9); Red Blood Count 4.08 M/mm3 (4.2-5.4); White Blood Count 11.4 K/mm3 (4.4-11.0)
[2024-10-25 09:32] LABS: Hemoglobin A1c 8.5 % (<=5.6)
[2024-10-25 14:43] LABS: ALB/GLOB Ratio 1.1 RATIO (0.9-2.4); AST(SGOT) 30 U/L (<=31); Alanine Aminotransfer ALT/SGPT 28 U/L (<=34); Albumin, Serum 3.8 g/dL (3.4-4.8); Alkaline Phosphatase 65 U/L (35-104); Anion Gap 10 (5-15); BUN 25 mg/dL (4-19); BUN/Creat Ratio 24.1 RATIO (10-20); Calcium,Total 10.1 mg/dL (7.6-11.0); Carbon Dioxide 23.2 mmol/L (21.0-32.0); Chloride 105 mmol/L (98-108); Creatinine, Serum 1.03 mg/dL (0.70-1.20); EST Glomerular Filtration Rate 54 (>60); Globulin 3.4 g/dL (2.2-4.2); Glucose 196 mg/dL (70-99); Potassium 4.9 mmol/L (3.3-5.1); Protein, Total 7.2 g/dL (5.9-8.4); Sodium Level 138 mmol/L (133-145); Total Bilirubin 1.13 mg/dL (0.00-1.30); Vitamin D,25 Hydroxy 76.2 ng/mL (30-100)
== END ==
LOC: OLS.ACH2 05:00
PROVIDERS: PCP Family Medicine
DX: E11.22 Type 2 diabetes mellitus with diabetic chronic kidney disease (principal); I35.0 Nonrheumatic aortic (valve) stenosis; N18.30 Chronic kidney disease, stage 3 unspecified
CPT/HCPCS: 36415; 80053; 82306; 83036; 84443; 85027

== ENCOUNTER → 2025-02-09 05:00 | Outpatient (REF) | payer MEDICARE, SELFPAY ==
[2025-02-09 09:21] LABS: Hematocrit 31.9 % (37-47); Hemoglobin 10.4 g/dL (12.0-15.0); Mean Corp Hgb Conc 32.6 g/dL (32-36); Mean Corpuscular Volume 93.3 fL (81-99); Mean Platelet Vol. 12.6 fl (6.2-12.0); Platelet Count 168 K/mm3 (150-450); RBC Distribution Width CV 12.7 % (11.6-14.6); RBC Distribution Width SD 43.8 fl (35.1-43.9); Red Blood Count 3.42 M/mm3 (4.2-5.4); White Blood Count 7.5 K/mm3 (4.4-11.0)
[2025-02-09 09:53] LABS: Ferritin 193 ng/mL (22-378); Iron 70 ug/dL (50-170); Iron Binding Capacity,Total 246 ug/dL (250-450); Iron Binding Capacity,Unsat 176 ug/dL (228-428)
== END ==
LOC: OLS.ACH2 05:00
PROVIDERS: PCP Family Medicine
DX: M85.80 Other specified disorders of bone density and structure, unspecified site (principal)
CPT/HCPCS: 36415; 82728; 83540; 83550; 85027

== ENCOUNTER → 2025-02-10 04:00 | Outpatient (REF) | payer MEDICARE, SELFPAY ==
[2025-02-10 08:11] LABS: Hematocrit 36.0 % (37-47); Hemoglobin 11.7 g/dL (12.0-15.0); Mean Corp Hgb Conc 32.5 g/dL (32-36); Mean Corpuscular Volume 93.5 fL (81-99); Mean Platelet Vol. 11.1 fl (6.2-12.0); Platelet Count 309 K/mm3 (150-450); RBC Distribution Width CV 12.7 % (11.6-14.6); RBC Distribution Width SD 43.6 fl (35.1-43.9); Red Blood Count 3.85 M/mm3 (4.2-5.4); White Blood Count 8.8 K/mm3 (4.4-11.0)
[2025-02-10 10:36] LABS: Ferritin 227 ng/mL (22-378); Iron 76 ug/dL (50-170)
== END ==
LOC: OLS.ACH2 04:00
PROVIDERS: PCP Family Medicine
DX: E11.22 Type 2 diabetes mellitus with diabetic chronic kidney disease (principal); N18.9 Chronic kidney disease, unspecified
CPT/HCPCS: 36415; 82728; 83540; 85027

== ENCOUNTER → 2025-03-07 05:00 | Outpatient (REF) | payer MEDICARE, SELFPAY ==
--- OUTSIDE RECORDS SUMMARY | 2025-03-07 04:24 | XMS RPT_ITS | CCD ---
Author Organization [facility] ion [facility] Care Team Providers Care Board Mill Supervisor Name Role Phone BARRETT GARCIA, DR ALVAREZ Primary Care Physician ([phone] CARLSON, Ricky Primary Care Provider Unava illeydi Hyde DO, Dr. Antonio Mesa Attending Provider [phone] Barrett GARCIA, Dr. Antonio Mesa Referring Provider [phone] Antonio Cottrell Attending Unavailab le [facility], [place] [facility] Unavailable Antonio Cottrell Attending Unavailab le [facility], [place] [facility], [place] Unavailable Antonio Cottrell Attending Unavailab le [place], [place] [facility], [place] Unavailable Antonio Cottrell Referring Unavailab le Antonio Cottrell Attending Unavailab le [place] [facility], [place] [facility], [place] Unavailable Antonio Cottrell Attending Unavailab le [place] [facility], [place] [facility], [place] Unavailable Antonio Cottrell Attending Unavailab le [place], [place] [facility], [place] Unavailable Antonio Cottrell Referring Unavailab le Allergies Allergy Classification Reported Allergen(s) Allergy Type Date of Onset Reaction(s) Facility (1 source) Adhesive bandage Allergy to substance [facility] (1 source) Morphine; Translations: [morphine] Drug Allergy [facility] (1 source) Penicillin; Translations: [penicillin] Drug Allergy [facility] (1 source) [place] Propensity to adverse reactions to food [facility] (1 source) Sulfonamides (Antibiotic); Translations: [sulfa drugs] Drug allergy [facility] (1 source) Aloes - chemical (substance); Translations: [aloe derivatives] Drug allergy [facility] (disorder) [facility] [place] Medications Current Medications Medication Drug Class(es) Dates [...] qAM, # 1 EA, 3 Refill(s), [facility]acy: [id number], 152, cm, 06/12/21 13:29:00 EDT, Height, kg, 06/12/21 13:29:00 EDT, Dosing Weight Start Date: 06/12/21 Status: Ordered glipiZIDE er 2.5 mg 24 hr extended release oral tablet (1 source) Sulfonylurea Start: 02-28-2022 glipiZIDE 2.5 mg oral tablet, extended release Dose : 2.5 mg = 1 tab(s), Oral, qDayM, # 30 tab(s), 0 Refill(s), [id number] 152, cm, 02/14/22 13:32:00 EDT, Height Start Date: 02/28/22 Status: Ordered lisinopril 5 mg oral tablet (1 source) Angiotensin Converting Enzyme Inhibitor Start: 10-11-2021 lisinopril 5 mg oral tablet Dose : 5 mg = 1 tab(s), Oral, qDay, # 90 tab(s), 3 Refill(s), [id number], 152, cm, 10/11/21 14:29:00 EST, Height, kg, 10/11/21 14:29:00 EST, Dosing Weight Start Date: 10/11/21 Status: Ordered metFORMIN hydrochloride 500 mg oral tablet (1 source) Biguanide Start: 11-08-2021 MetFORMIN (Eqv-Glucophage XR) 500 mg oral tablet, EXTENDED RELEASE Dose : 1,000 mg = 2 tab(s), Oral, qDay, # 180 tab(s), 1 Refill(s), [id number], 152, cm, 10/11/21 14:29:00 EST, Height, [...] TID, # 1 EA, 1 Refill(s), [id number], Powder, 152, cm, 12/19/20 13:24:00 EDT, [...] DAY, # 270 tab(s), 3 Refill(s), [id number], 152, cm, 02/14/22 13:32:00 EDT, Height, [...] infarction (1 source) Myocardial infarction 10-13-2019 Chronic Comment on above: In the setting of pr esumed pneumonia Asthma (1 source) Asthma 12-31-2018 Chronic Chronic kidney disease (1 source) Chronic kidney disease stage 3 10-13-2019 Chronic Chronic kidney disease (1 source) Chronic kidney disease; Translations: [Chronic kidney disease, stage 3 unspecified] Onset: 11-16-2024 Deficiency and other anemia (2 sources) Anemia in chronic kidney disease; Translations: [Anemia in chronic kidney disease] Onset: 05-06-2024 Chronic Deficiency and other anemia (1 source) Anemia 02-18-2019 Episodic Diabetes mellitus with complications (3 sources) Chronic kidney disease stage 3 due to type 2 diabetes mellitus; Translations: [Type 2 diabetes mellitus with diabetic chronic kidney disease] Onset: 11-16-2024 02-09-2021 Chronic Diabetes mellitus without complication (2 sources) Diabetes mellitus; Translations: [Type 2 diabetes mellitus] 10-03-2021 Chronic Comment on above: Being managed by PCP and currently diet controlled Essential hypertension (1 source) Essential hypertension 02-01-2020 Chronic Fluid and electrolyte disorders (1 source) Hypokalemia 09-04-2021 Episodic Heart valve disorders (1 source) Nonrheumatic aortic (valve) stenosis; Translations: [Nonrheumatic aortic (valve) stenosis] Onset: 11-16-2024 Chronic Heart valve disorders (2 sources) Heart murmur; Translations: [Murmur] 09-04-2021 Episodic Hypertension with complications and secondary hypertension (2 sources) Hypertensive chronic kidney disease with stage 1 through stage 4 chronic kidney disease, or unspecified chronic kidney disease; Translations: [Hypertensive chronic kidney disease with stage 1 through stage 4 chronic kidney disease, or unspecified chronic kidney disease] Onset: 05-06-2024 Chronic Neoplasms of unspecified nature or uncertain behavior (1 source) Thrombocytosis 02-18-2019 Chronic Osteoarthritis (2 sources) Degenerative joint disease involving multiple joints; Translations: [Osteoarthritis] 02-18-2019 Chronic Other acquired deformities (1 source) Scoliosis deformity of spine 02-18-2019 Chronic Other bone disease and musculoskeletal deformities (1 source) Osteopenia 02-01-2020 Episodic Other bone disease and musculoskeletal deformities (2 sources) Other specified disorders of bone density and structure, unspecified site; Translations: [Other specified disorders of bone density and structure, unspecified site] Onset: 05-06-2024 Episodic Other hereditary and degenerative nervous system conditions (1 source) Movement disorder 02-01-2020 Chronic Thyroid disorders (1 source) Hypothyroidism, unspecified; Translations: [Hypothyroidism, unspecified] Onset: 05-06-2024 Chronic Results Test Name Value Interpretation Reference Range Facility CBC-Complete Blood Cnt No Di ffon 02-10-2025 Erythrocyte distribution width (RBC) [Ratio] 12.7 % Normal 11.6-14.6 [facility] Comment on above: Order Comment: 401 Performed By: #### L 503.6550, L503.6150, L100.0500 #### [facility] [address] [place], [address] Hematocrit (Bld) [Volume fraction] 36.0 % Low 37-47 [facility] Comment on above: Order Comment: 401 Performed By: #### L 503.6550, L503.6150, L100.0500 #### [facility] [address] [place], [address] Hemoglobin (Bld) [Mass/Vol] 11.7 g/dL Low 12.0-15.0 [facility] Comment on above: Order Comment: 401 Performed By: #### L 503.6550, L503.6150, L100.0500 #### [facility] [address] [place], [address] MCH (RBC) [Entitic mass] 30.4 pg Normal 27.0-32.0 [facility] Comment on above: Order Comment: 401 Performed By: #### L 503.6550, L503.6150, L100.0500 #### [facility] [address] [place], [address] MCHC (RBC) [Mass/Vol] 32.5 g/dL Normal 32-36 [facility] Comment on above: Order Comment: 401 Performed By: #### L 503.6550, L503.6150, L100.0500 #### [facility] [address] [place], [address] MCV (RBC) [Entitic vol] 93.5 fL Normal 81-99 [facility] Comment on above: Order Comment: 401 Performed By: #### L 503.6550, L503.6150, L100.0500 #### [facility] [address] [place], [address] Platelet mean volume (Bld) [Entitic vol] 11.1 fL Normal 6.2-12.0 [facility] Comment on above: Order Comment: 401 Performed By: #### L 503.6550, L503.6150, L100.0500 #### [facility] [address] [place], [address] Platelets (Bld) [#/Vol] 309 10*3/uL Normal 150-450 [facility] Comment on above: Order Comment: 401 Performed By: #### L 503.6550, L503.6150, L100.0500 #### [facility] [address] [place], [address] RBC (Bld) [#/Vol] 3.85 10*6/uL Low 4.2-5.4 [facility] Comment on above: Order Comment: 401 Performed By: #### L 503.6550, L503.6150, L100.0500 #### [facility] [address] [place], [address] RDW SD 43.6 fl Normal 35.1-43.9 [facility] Comment on above: Order Comment: 401 Performed By: #### L 503.6550, L503.6150, L100.0500 #### [facility] [address] [place], [address] WBC (Bld) [#/Vol] 8.8 10*3/uL Normal 4.4-11.0 [facility] Comment on above: Order Comment: 401 Performed By: #### L 503.6550, L503.6150, L100.0500 #### [facility] [address] [place], [address] Ferritinon 02-10-2025 Ferritin [Mass/Vol] 227 ng/mL Normal 22-378 [facility] Comment on above: Order Comment: 401 Performed By: #### L 503.6550, L503.6150, L100.0500 #### [facility] [address] [place], [address] Ironon 02-10-2025 Iron [Mass/Vol] 76 ug/dL Normal 50-170 [facility] Comment on above: Order Comment: 401 Performed By: #### L 503.6550, L503.6150, L100.0500 #### [facility] [address] [place], [address] CBC-Complete Blood Cnt No Di ffon 02-09-2025 Erythrocyte distribution width (RBC) [Ratio] 12.7 % Normal 11.6-14.6 [facility] Comment on above: Order Comment: 401.1 Performed By: #### L 506.1001, L500.4050, L501.9520, L100.0500, L501.9985 #### [facility] [address] [place], [address] Hematocrit (Bld) [Volume fraction] 31.9 % Low 37-47 [facility] Comment on above: Order Comment: 401.1 Performed By: #### L 506.1001, L500.4050, L501.9520, L100.0500, L501.9985 #### [facility] [address] [place], [address] Hemoglobin (Bld) [Mass/Vol] 10.4 g/dL Low 12.0-15.0 [facility] Comment on above: Order Comment: 401.1 Performed By: #### L 506.1001, L500.4050, L501.9520, L100.0500, L501.9985 #### [facility] [address] [place], [address] MCH (RBC) [Entitic mass] 30.4 pg Normal 27.0-32.0 [facility] Comment on above: Order Comment: 401.1 Performed By: #### L 506.1001, L500.4050, L501.9520, L100.0500, L501.9985 #### [facility] [address] [place], [address] MCHC (RBC) [Mass/Vol] 32.6 g/dL Normal 32-36 [facility] Comment on above: Order Comment: 401.1 Performed By: #### L 506.1001, L500.4050, [id number], L100.0500, L501.9985 #### [facility] [address] [place], [address] MCV (RBC) [Entitic vol] 93.3 fL Normal 81-99 [facility] Comment on above: Order Comment: 401.1 Performed By: #### L 506.1001, L500.4050, [id number], L100.0500, L501.9985 #### [facility] [address] [place], [address] Platelet mean volume (Bld) [Entitic vol] 12.6 fL High 6.2-12.0 [facility] Comment on above: Order Comment: 401.1 Performed By: #### L 506.1001, L500.4050, L501.9520, L100.0500, L501.9985 #### [facility] [address] [place], [address] Platelets (Bld) [#/Vol] 168 10*3/uL Normal 150-450 [facility] Comment on above: Order Comment: 401.1 Performed By: #### L 506.1001, L500.4050, L501.9520, L100.0500, L501.9985 #### [facility] [address] [place], [address] RBC (Bld) [#/Vol] 3.42 10*6/uL Low 4.2-5.4 [facility] Comment on above: Order Comment: 401.1 Performed By: #### L 506.1001, L500.4050, [id number], L100.0500, L501.9985 #### [facility] [address] [place], [address] RDW SD 43.8 fl Normal 35.1-43.9 [facility] Comment on above: Order Comment: 401.1 Performed By: #### L 506.1001, L500.4050, [id number], L100.0500, L501.9985 #### [facility] [address] [place], [address] WBC (Bld) [#/Vol] 7.5 10*3/uL Normal 4.4-11.0 [facility] Comment on above: Order Comment: 401.1 Performed By: #### L 506.1001, L500.4050, L501.9520, L100.0500, L501.9985 #### [facility] [address] [place], [address] Ferritinon 02-09-2025 Ferritin [Mass/Vol] 193 ng/mL Normal 22-378 [facility] Comment on above: Order Comment: 401.1 Performed By: #### L 506.1001, L500.4050, L501.9520, L100.0500, L501.9985 #### [facility] [address] [place], [address] Iron+Iron Binding Capacityon 02-09-2025 Iron [Mass/Vol] 70 ug/dL Normal 50-170 [facility] Comment on above: Order Comment: 401.1 Performed By: #### L 506.1001, L500.4050, [id number], L100.0500, L501.9985 #### [facility] [address] [place], [address] IRON SATURATION 28.0 Normal 13-59 [facility] Comment on above: Order Comment: 401.1 Performed By: #### L 506.1001, L500.4050, L501.9520, L100.0500, L501.9985 #### [facility] [address] [place], [address] TIBC 246 ug/dL Low 250-450 [facility] Comment on above: Order Comment: 401.1 Performed By: #### L 506.1001, L500.4050, L501.9520, L100.0500, L501.9985 #### [facility] [address] [place], [address] UIBC 176 ug/dL Low 228-428 [facility] Comment on above: Order Comment: 401.1 Performed By: #### L 506.1001, L500.4050, L501.9520, L100.0500, L501.9985 #### [facility] [address] [place], [address] Anion gap in Serum or Plasma Ordered By: Antonio Hyde on 10-25-2024 Anion gap [Moles/Vol] 10 mmol/L 5-15 [facility] BUN/creatinine ratioOrdered By: Antonio Hyde on 10-25-2024 Urea nitrogen/Creatinine [Mass ratio] 24.1 mg/mg High 10- [facility] Bilirubin, totalOrdered By: Antonio Hyde on 10-25-2024 Bilirubin [Mass/Vol] 1.13 mg/dL 0.00-1.30 [facility] CBC-Complete Blood Cnt No Meghan popon 10-25-2024 Erythrocyte distribution width (RBC) [Ratio] 12.4 % Normal 11.6-14.6 [facility] Comment on above: Order Comment: 401.1 Performed By: #### L 506.1001, L500.4050, L501.9520, L100.0500, L501.9985 #### [facility] [address] [place], [address] Hematocrit (Bld) [Volume fraction] 37.8 % Normal 37-47 [facility] Comment on above: Order Comment: 401.1 Performed By: #### L 506.1001, L500.4050, L501.9520, L100.0500, L501.9985 #### [facility] [address] [place], [address] Hemoglobin (Bld) [Mass/Vol] 12.2 g/dL Normal 12.0-15.0 [facility] Comment on above: Order Comment: 401.1 Performed By: #### L 506.1001, L500.4050, L501.9520, L100.0500, L501.9985 #### [facility] [address] [place], [address] MCH (RBC) [Entitic mass] 29.9 pg Normal 27.0-32.0 [facility] Comment on above: Order Comment: 401.1 Performed By: #### L 506.1001, L500.4050, L501.9520, L100.0500, L501.9985 #### [facility] [address] [place], [address] MCHC (RBC) [Mass/Vol] 32.3 g/dL Normal 32-36 [facility] Comment on above: Order Comment: 401.1 Performed By: #### L 506.1001, L500.4050, L501.9520, L100.0500, L501.9985 #### [facility] [address] [place], [address] MCV (RBC) [Entitic vol] 92.6 fL Normal 81-99 [facility] Comment on above: Order Comment: 401.1 Performed By: #### L 506.1001, L500.4050, L501.9520, L100.0500, L501.9985 #### [facility] [address] [place], [address] Platelet mean volume (Bld) [Entitic vol] 11.0 fL Normal 6.2-12.0 [facility] Comment on above: Order Comment: 401.1 Performed By: #### L 506.1001, L500.4050, L501.9520, L100.0500, L501.9985 #### [facility] [address] [place], [address] Platelets (Bld) [#/Vol] 348 10*3/uL Normal 150-450 [facility] Comment on above: Order Comment: 401.1 Performed By: #### L 506.1001, L500.4050, L501.9520, L100.0500, L501.9985 #### [facility] [address] [place], [address] RBC (Bld) [#/Vol] 4.08 10*6/uL Low 4.2-5.4 [facility] Comment on above: Order Comment: 401.1 Performed By: #### L 506.1001, L500.4050, L501.9520, L100.0500, L501.9985 #### [facility] [address] [place], [address] RDW SD 42.2 fl Normal 35.1-43.9 [facility] Comment on above: Order Comment: 401.1 Performed By: #### L 506.1001, L500.4050, L501.9520, L100.0500, L501.9985 #### [facility] [address] [place], [address] WBC (Bld) [#/Vol] 11.4 10*3/uL High 4.4-11.0 [facility] Comment on above: Order Comment: 401.1 Performed By: #### L 506.1001, L500.4050, L501.9520, L100.0500, L501.9985 #### [facility] [address] [place], [address] Carbon dioxide, total [Moles /volume] in Central venous bloodOrdered By: Antonio Hyde on 10-25-2024 CO2 [Moles/Vol] 23.2 mmol/L 21.0-32.0 [facility] Chloride assayOrdered By: Shabana Hyde on 10-25-2024 Chloride [Moles/Vol] 105 mmol/L 98-108 [facility] Comprehensive Metabolic Prof ilon 10-25-2024 Albumin [Mass/Vol] 3.8 g/dL Normal 3.4-4.8 [facility] Comment on above: Order Comment: 401.1 Performed By: #### L 506.1001, L500.4050, L501.9520, L100.0500, L501.9985 #### [facility] [address] [place], [address] Albumin/Globulin [Mass ratio] 1.1 {ratio} Normal 0.9-2.4 [facility] Comment on above: Order Comment: 401.1 Performed By: #### L 506.1001, L500.4050, L501.9520, L100.0500, L501.9985 #### [facility] [address] [place], [address] ALK PHOS 65 U/L Normal 35-104 [facility] Comment on above: Order Comment: 401.1 Performed By: #### L 506.1001, L500.4050, L501.9520, L100.0500, L501.9985 #### [facility] [address] [place], [address] ALT [Catalytic activity/Vol] 28 U/L Normal <=34 [facility] Comment on above: Order Comment: 401.1 Performed By: #### L 506.1001, L500.4050, L501.9520, L100.0500, L501.9985 #### [facility] [address] [place], [address] AST [Catalytic activity/Vol] 30 U/L Normal <=31 [facility] Comment on above: Order Comment: 401.1 Result Comment: Hemo lysis present, Results??could be affected. ?? Performed By: #### L 506.1001, L500.4050, L501.9520, L100.0500, L501.9985 #### [facility] [address] [place], [address] Bilirubin [Mass/Vol] 1.13 mg/dL Normal 0.00-1.30 [facility] Comment on above: Order Comment: 401.1 Performed By: #### L 506.1001, L500.4050, L501.9520, L100.0500, L501.9985 #### [facility] [address] [place], [address] BUN/CRE 24.1 RATIO High 10-20 [facility] Comment on above: Order Comment: 401.1 Performed By: #### L 506.1001, L500.4050, L501.9520, L100.0500, L501.9985 #### [facility] [address] [place], [address] Calcium [Mass/Vol] 10.1 mg/dL Normal 7.6-11.0 [facility] Comment on above: Order Comment: 401.1 Performed By: #### L 506.1001, L500.4050, L501.9520, L100.0500, L501.9985 #### [facility] [address] [place], [address] Chloride [Moles/Vol] 105 mmol/L Normal 98-108 [facility] Comment on above: Order Comment: 401.1 Performed By: #### L 506.1001, L500.4050, L501.9520, L100.0500, L501.9985 #### [facility] [address] [place], [address] CO2 [Moles/Vol] 23.2 mmol/L Normal 21.0-32.0 [facility] Comment on above: Order Comment: 401.1 Performed By: #### L 506.1001, L500.4050, L501.9520, L100.0500, L501.9985 #### [facility] [address] [place], [address] Creatinine [Mass/Vol] 1.03 mg/dL Normal 0.70-1.20 [facility] Comment on above: Order Comment: 401.1 Performed By: #### L 506.1001, L500.4050, L501.9520, L100.0500, L501.9985 #### [facility] [address] [place], [address] GAP 10 Normal 5-15 [facility] Comment on above: Order Comment: 401.1 Performed By: #### L 506.1001, L500.4050, L501.9520, L100.0500, L501.9985 #### [facility] [address] [place], [address] GFR/1.73 sq M.predicted among non-blacks MDRD (S/P/Bld) [Vol rate/Area] 54 mL/min/{1.73_m2} Low >60 [facility] Comment on above: Order Comment: 401.1 Result Comment: mL/m in/1.73m2 CKD-EPI Creatinine Equation (2020) Performed By: #### L 506.1001, L500.4050, L501.9520, L100.0500, L501.9985 #### [facility] [address] [place], [address] Globulin (S) [Mass/Vol] 3.4 g/dL Normal 2.2-4.2 [facility] Comment on above: Order Comment: 401.1 Performed By: #### L 506.1001, L500.4050, L501.9520, L100.0500, L501.9985 #### [facility] [address] [place], [address] Glucose [Mass/Vol] 196 mg/dL High 70-99 [facility] Comment on above: Order Comment: 401.1 Performed By: #### L 506.1001, L500.4050, L501.9520, L100.0500, L501.9985 #### [facility] [address] [place], [address] Potassium [Moles/Vol] 4.9 mmol/L Normal 3.3-5.1 [facility] Comment on above: Order Comment: 401.1 Result Comment: Hemo lysis present, Results??could be affected. ?? Performed By: #### L 506.1001, L500.4050, L501.9520, L100.0500, L501.9985 #### [facility] [address] [place], [address] Sodium [Moles/Vol] 138 mmol/L Normal 133-145 [facility] Comment on above: Order Comment: 401.1 Performed By: #### L 506.1001, L500.4050, L501.9520, L100.0500, L501.9985 #### [facility] [address] [place], [address] T PROT 7.2 g/dL Normal 5.9-8.4 [facility] Comment on above: Order Comment: 401.1 Performed By: #### L 506.1001, L500.4050, L501.9520, L100.0500, L501.9985 #### [facility] [address] [place], [address] Urea nitrogen [Mass/Vol] 25 mg/dL High 4-19 [facility] Comment on above: Order Comment: 401.1 Performed By: #### L 506.1001, L500.4050, L501.9520, L100.0500, L501.9985 #### [facility] [address] [place], [address] Erythrocyte distribution wid th (RBC) [Ratio]Ordered By: Antonio Hyde on 10-25-2024 Erythrocyte distribution width (RBC) [Entitic vol] 42.2 fL 35.1-43.9 [facility] Erythrocyte distribution wid th ratioOrdered By: Antonio Hyde on 10-25-2024 Erythrocyte distribution width (RBC) [Ratio] 12.4 % 11.6-14.6 [facility] GFR/1.73 sq M.predicted lilli g non-blacks MDRD (S/P/Bld) [Vol rate/Area]Ordered By: Antonio Hyde on 10-25-2024 Estimated GFR (MDRD) Non-Af Amer 54 Low >60 [facility] Comment on above: mL/min/1.73m2 CKD-EP I Creatinine Equation (2020) Hematocrit Auto (Bld) [Volum e fraction]Ordered By: Antonio Hyde on 10-25-2024 Hematocrit (Bld) [Volume fraction] 37.8 % 37-47 [facility] Hemoglobin A1con 10-25-2024 HbA1c (Bld) [Mass fraction] 8.5 % Normal <=5.6 [facility] Comment on above: Order Comment: 401.1 Performed By: #### L 506.1001, L500.4050, L501.9520, L100.0500, L501.9985 #### [facility] [address] [place], [address] Hemoglobin A1c percentageOrd ered By: Antonio Hyde on 10-25-2024 HbA1c (Bld) [Mass fraction] 8.5 % >5.7 [facility] Hemoglobin measurementOrdere d By: Antonio Hyde on 10-25-2024 Hemoglobin (Bld) [Mass/Vol] 12.2 g/dL 12.0-15.0 [facility] L506.1001on 10-25-2024 Vitamin D 25-OH 76.2 ng/mL Normal 30-100 [facility] Comment on above: Order Comment: 401.1 Result Comment: Lupe min D Status Deficiency: <20 ng/mL (50nmol/L) Insufficiency: 20-30 ng/mL (50-75 nmol/L) Sufficiency: 30-100 ng/mL (75-250 nmol/L) Toxicity: >100 ng/mL (>250 nmol/L) Performed By: #### L 506.1001, L500.4050, L501.9520, L100.0500, L501.9985 #### [facility] [address] [place], [address] Laboratory - Chemistry and C hemistry - challengeOrdered By: Antonio Hyde on 10-25-2024 AST [Catalytic activity/Vol] 30 U/L <32 [facility] Comment on above: Hemolysis present, R esults could be affected. MCV (mean corpuscular volume ) determinationOrdered By: Antonio Hyde on 10-25-2024 MCV (RBC) [Entitic vol] 92.6 fL 81-99 [facility] Mean corpuscular hemoglobin (MCH) determinationOrdered By: Antonio Hyed on 10-25-2024 MCH (RBC) [Entitic mass] 29.9 pg 27.0-32.0 [facility] Mean corpuscular hemoglobin concentration (MCHC) determinationOrdered By: Antonio Hyde on 10-25-2024 MCHC (RBC) [Mass/Vol] 32.3 g/dL 32-36 [facility] Mean platelet volume determi nationOrdered By: Antonio Hyde on 10-25-2024 Platelet mean volume (Bld) [Entitic vol] 11.0 fL 6.2-12.0 [facility] Platelet countOrdered By: Shabana Hyde on 10-25-2024 Platelets (Bld) [#/Vol] 348 10*3/uL 150-450 [facility] Potassium (Unsp spec) [Mass/ Vol]Ordered By: Antonio Hyde on 10-25-2024 Potassium [Moles/Vol] 4.9 mmol/L 3.3-5.1 [facility] Comment on above: Hemolysis present, R esults could be affected. RBC Auto (Bld) [#/Vol]Ordere d By: Antonio Hyde on 10-25-2024 RBC (Bld) [#/Vol] 4.08 10*6/uL Low 4.2-5.4 [facility] Serum creatinine measurement (mass/volume)Ordered By: Antonio Hyde on 10-25-2024 Creatinine [Mass/Vol] 1.03 mg/dL 0.70-1.20 [facility] Serum globulin measurementOr dered By: Antonio Hyde on 10-25-2024 Globulin (S) [Mass/Vol] 3.4 g/dL 2.2-4.2 [facility] Serum glucose measurement (m ass/volume)Ordered By: Antonio Hyde on 10-25-2024 Glucose [Mass/Vol] 196 mg/dL High 70-99 [facility] Serum or plasma alanine smart otransferase (ALT) measurementOrdered By: Antonio Hyde on 10-25-2024 ALT [Catalytic activity/Vol] 28 U/L <35 [facility] Serum or plasma albumin beena urement (mass/volume)Ordered By: Antonio Hyde on 10-25-2024 Albumin [Mass/Vol] 3.8 g/dL 3.4-4.8 [facility] Serum or plasma albumin/glob ulin mass ratioOrdered By: Antonio Hyde on 10-25-2024 Albumin/Globulin [Mass ratio] 1.1 {ratio} 0.9-2.4 [facility] Serum or plasma alkaline zeus sphatase measurementOrdered By: Antonio Hyde on 10-25-2024 ALP [Catalytic activity/Vol] 65 U/L 35-104 [facility] Serum or plasma calcium beena urement (mass/volume)Ordered By: Antonio Hyde on 10-25-2024 Calcium [Mass/Vol] 10.1 mg/dL 7.6-11.0 [facility] Serum or plasma urea nitroge n measurement (mass/volume)Ordered By: Antonio Hyde on 10-25-2024 Urea nitrogen [Mass/Vol] 25 mg/dL High 4-19 [facility] Sodium levelOrdered By: Tonia Hyde on 10-25-2024 Sodium [Moles/Vol] 138 mmol/L 133-145 [facility] TSH DL <= 0.005 mIU/L QnOrde red By: Antonio Hyde on 10-25-2024 Thyroid Stimulating Hormone (TSH) 2.910 uIU/mL 0.300-4.200 [facility] Thyroid Stim Hormone (TSH)on 10-25-2024 TSH 2.910 uIU/mL Normal 0.300-4.200 [facility] Comment on above: Order Comment: 401.1 Performed By: #### L 506.1001, L500.4050, L501.9520, L100.0500, L501.9985 #### [facility] [address] [place], [place], [id number] Total proteinOrdered By: Mabel Hyde on 10-25-2024 Protein [Mass/Vol] 7.2 g/dL 5.9-8.4 [facility] Vitamin D, 25-hydroxyOrdered By: Antonio Hyde on 10-25-2024 Vitamin D 25-Hydroxy 76.2 ng/mL 30-100 [facility] Comment on above: Vitamin D StatusDefi ciency: <20 ng/mL (50nmol/L)Insufficiency: 20-30 ng/mL (50-75 nmol/L)Sufficiency: 30-100 ng/mL (75-250 nmol/L)Toxicity: >100 ng/mL (>250 nmol/L) White blood cell (WBC) count Ordered By: Antonio Hyde on 10-25-2024 WBC (Bld) [#/Vol] 11.4 10*3/uL High 4.4-11.0 [facility] 98-MB-Capmhtf DOrdered By: Maribel Hyde on 09-20-2024 Vitamin D 25-Hydroxy 64.4 ng/mL [facility] Comment on above: Vitamin D 25(OH) Sta tus Range Deficiency <20 ng/mL (50nmol/L) Insufficiency 20 - 30 ng/mL (50 - 75 nmol/L) Sufficiency 30 - 100 ng/mL (75 - 250 nmol/L) Toxicity >100 ng/mL (>250 nmol/L) Albumin to globulin ratioOrd ered By: Antonio Hyde on 09-20-2024 Albumin/Globulin [Mass ratio] 0.9 {ratio} 0.9-2.4 [facility] Bilirubin, totalOrdered By: Antonio Hyde on 09-20-2024 Bilirubin [Mass/Vol] 0.80 mg/dL 0.20-1.00 [facility] Comment on above: For patients on eltr ombopag therapy, use of Dimension [place] TBIL is not recommended. Blood urea nitrogen (BUN)/cr eatinine ratioOrdered By: Antonio Hyde on 09-20-2024 Urea nitrogen/Creatinine [Mass ratio] 32.0 mg/mg High 10- [facility] CBC-Complete Blood Cnt No Di ffon 09-20-2024 Erythrocyte distribution width (RBC) [Ratio] 12.6 % Normal 11.6-14.6 [facility] Comment on above: Order Comment: 401.1 Performed By: #### L 506.1001, L500.4050, L501.9520, L100.0500, L501.9985 #### [facility] [address] [place], [place], [id number] Hematocrit (Bld) [Volume fraction] 35.8 % Low 37-47 [facility] Comment on above: Order Comment: 401.1 Performed By: #### L 506.1001, L500.4050, L501.9520, L100.0500, L501.9985 #### [facility] [address] [place], [address] Hemoglobin (Bld) [Mass/Vol] 11.6 g/dL Low 12.0-15.0 [facility] Comment on above: Order Comment: 401.1 Performed By: #### L 506.1001, L500.4050, L501.9520, L100.0500, L501.9985 #### [facility] [address] [place], [address] MCH (RBC) [Entitic mass] 30.2 pg Normal 27.0-32.0 [facility] Comment on above: Order Comment: 401.1 Performed By: #### L 506.1001, L500.4050, L501.9520, L100.0500, L501.9985 #### [facility] [address] [place], [address] MCHC (RBC) [Mass/Vol] 32.4 g/dL Normal 32-36 [facility] Comment on above: Order Comment: 401.1 Performed By: #### L 506.1001, L500.4050, L501.9520, L100.0500, L501.9985 #### [facility] [address] [place], [address] MCV (RBC) [Entitic vol] 93.2 fL Normal 81-99 [facility] Comment on above: Order Comment: 401.1 Performed By: #### L 506.1001, L500.4050, L501.9520, L100.0500, L501.9985 #### [facility] [address] [place], [address] Platelet mean volume (Bld) [Entitic vol] 11.6 fL Normal 6.2-12.0 [facility] Comment on above: Order Comment: 401.1 Performed By: #### L 506.1001, L500.4050, L501.9520, L100.0500, L501.9985 #### [facility] [address] [place], [address] Platelets (Bld) [#/Vol] 268 10*3/uL Normal 150-450 [facility] Comment on above: Order Comment: 401.1 Performed By: #### L 506.1001, L500.4050, L501.9520, L100.0500, L501.9985 #### [facility] [address] [place], [address] RBC (Bld) [#/Vol] 3.84 10*6/uL Low 4.2-5.4 [facility] Comment on above: Order Comment: 401.1 Performed By: #### L 506.1001, L500.4050, L501.9520, L100.0500, L501.9985 #### [facility] [address] [place], [address] RDW SD 43.0 fl Normal 35.1-43.9 [facility] Comment on above: Order Comment: 401.1 Performed By: #### L 506.1001, L500.4050, L501.9520, L100.0500, L501.9985 #### [facility] [address] [place], [address] WBC (Bld) [#/Vol] 7.6 10*3/uL Normal 4.4-11.0 [facility] Comment on above: Order Comment: 401.1 Performed By: #### L 506.1001, L500.4050, L501.9520, L100.0500, L501.9985 #### [facility] [address] [place], [address] Carbon dioxide measurementOr dered By: Antonio Hyde on 09-20-2024 CO2 [Moles/Vol] 26.0 mmol/L 21.0-32.0 [facility] Chloride measurementOrdered By: Antonio Hyde on 09-20-2024 Chloride [Moles/Vol] 109 mmol/L High 98-107 [facility] Comprehensive Metabolic Prof ilon 09-20-2024 Albumin [Mass/Vol] 3.4 g/dL Normal 3.2-5.0 [facility] Comment on above: Order Comment: 401.1 Performed By: #### L 506.1001, L500.4050, L501.9520, L100.0500, L501.9985 #### [facility] [address] [place], [address] Albumin/Globulin [Mass ratio] 0.9 {ratio} Normal 0.9-2.4 [facility] Comment on above: Order Comment: 401.1 Performed By: #### L 506.1001, L500.4050, L501.9520, L100.0500, L501.9985 #### [facility] [address] [place], [address] ALK P 59 U/L Normal 45-117 [facility] Comment on above: Order Comment: 401.1 Performed By: #### L 506.1001, L500.4050, L501.9520, L100.0500, L501.9985 #### [facility] [address] [place], [address] ALT [Catalytic activity/Vol] 56 U/L Normal 13-56 [facility] Comment on above: Order Comment: 401.1 Performed By: #### L 506.1001, L500.4050, L501.9520, L100.0500, L501.9985 #### [facility] [address] [place], [address] AST [Catalytic activity/Vol] 45 U/L High 15-37 [facility] Comment on above: Order Comment: 401.1 Performed By: #### L 506.1001, L500.4050, L501.9520, L100.0500, L501.9985 #### [facility] [address] [place], [address] Bilirubin [Mass/Vol] 0.80 mg/dL Normal 0.20-1.00 [facility] Comment on above: Order Comment: 401.1 Result Comment: For patients on eltrombopag therapy, use of Dimension [place] TBIL is not recommended. Performed By: #### L 506.1001, L500.4050, L501.9520, L100.0500, L501.9985 #### [facility] [address] [place], [address] BUN/CRE 32.0 RATIO High 10-20 [facility] Comment on above: Order Comment: 401.1 Performed By: #### L 506.1001, L500.4050, L501.9520, L100.0500, L501.9985 #### [facility] [address] [place], [address] CA,Total 10.1 mg/dL Normal 8.5-10.1 [facility] Comment on above: Order Comment: 401.1 Performed By: #### L 506.1001, L500.4050, L501.9520, L100.0500, L501.9985 #### [facility] [address] [place], [address] Chloride [Moles/Vol] 109 mmol/L High 98-107 [facility] Comment on above: Order Comment: 401.1 Performed By: #### L 506.1001, L500.4050, L501.9520, L100.0500, L501.9985 #### [facility] [address] [place], [address] CO2 [Moles/Vol] 26.0 mmol/L Normal 21.0-32.0 [facility] Comment on above: Order Comment: 401.1 Performed By: #### L 506.1001, L500.4050, L501.9520, L100.0500, L501.9985 #### [facility] [address] [place], [address] Creatinine [Mass/Vol] 0.84 mg/dL Normal 0.55-1.02 [facility] Comment on above: Order Comment: 401.1 Result Comment: The validity of the calculated GFR GFRAA in patients over 70 years has not been determined. Clinical correlation is essential. Performed By: #### L 506.1001, L500.4050, L501.9520, L100.0500, L501.9985 #### [facility] [address] [place], [address] EST GFR - AA 83 mL/min Normal >60 [facility] Comment on above: Order Comment: 401.1 Result Comment: Afri can Macanese GFR Calc Performed By: #### L 506.1001, L500.4050, L501.9520, L100.0500, L501.9985 #### [facility] [address] [place], [address] GAP 6 Normal 5-15 [facility] Comment on above: Order Comment: 401.1 Performed By: #### L 506.1001, L500.4050, L501.9520, L100.0500, L501.9985 #### [facility] [address] [place], [address] GFR/1.73 sq M.predicted among non-blacks MDRD (S/P/Bld) [Vol rate/Area] 68 mL/min/{1.73_m2} Normal >60 [facility] Comment on above: Order Comment: 401.1 Result Comment: Non- GFR Calc Performed By: #### L 506.1001, L500.4050, L501.9520, L100.0500, L501.9985 #### [facility] [address] [place], [address] Globulin (S) [Mass/Vol] 3.8 g/dL Normal 2.2-4.2 [facility] Comment on above: Order Comment: 401.1 Performed By: #### L 506.1001, L500.4050, L501.9520, L100.0500, L501.9985 #### [facility] [address] [place], [address] Glucose [Mass/Vol] 145 mg/dL High 74-106 [facility] Comment on above: Order Comment: 401.1 Result Comment: Fast ing Glucose result greater than or equal to 126 mg/dL suggests DIABETES MELLITUS per A.D.A. criteria. Performed By: #### L 506.1001, L500.4050, L501.9520, L100.0500, L501.9985 #### [facility] [address] [place], [address] Potassium [Moles/Vol] 4.6 mmol/L Normal 3.5-5.1 [facility] Comment on above: Order Comment: 401.1 Performed By: #### L 506.1001, L500.4050, L501.9520, L100.0500, L501.9985 #### [facility] [address] [place], [address] Sodium [Moles/Vol] 140 mmol/L Normal 136-145 [facility] Comment on above: Order Comment: 401.1 Performed By: #### L 506.1001, L500.4050, L501.9520, L100.0500, L501.9985 #### [facility] [address] [place], [address] T PROT 7.2 g/dL Normal 6.4-8.2 [facility] Comment on above: Order Comment: 401.1 Performed By: #### L 506.1001, L500.4050, L501.9520, L100.0500, L501.9985 #### [facility] [address] [place], [address] Urea nitrogen [Mass/Vol] 27 mg/dL High 7-18 [facility] Comment on above: Order Comment: 401.1 Performed By: #### L 506.1001, L500.4050, L501.9520, L100.0500, L501.9985 #### [facility] [address] [place], [address] Erythrocyte distribution wid th (RBC) [Ratio]Ordered By: Antonio Hdye on 09-20-2024 Erythrocyte distribution width (RBC) [Entitic vol] 43.0 fL 35.1-43.9 [facility] Erythrocyte distribution wid th ratioOrdered By: Antonio Hyde on 09-20-2024 Erythrocyte distribution width (RBC) [Ratio] 12.6 % 11.6-14.6 [facility] Estimated glomerular filtrat ion rate (GFR) AmericanOrdered By: Antonio Hyde on 09-20-2024 Estimated GFR (MDRD) Amer 83 mL/min >60 [facility] Comment on above: GFR Calc Ferritinon 09-20-2024 Ferritin [Mass/Vol] 140 ng/mL Normal 8 [facility] Comment on above: Order Comment: 401.1 Performed By: #### L 506.1001, L500.4050, L501.9520, L100.0500, L501.9985 #### [facility] [address] [place], [place], [id number] Ferritin measurementOrdered By: Antonio Hyde on 09-20-2024 Ferritin [Mass/Vol] 140 ng/mL 8-252 [facility] Glomerular filtration rate ( GFR) estimationOrdered By: Antonio Hyde on 09-20-2024 Estimated GFR (MDRD) Non-Af Amer 68 mL/min >60 [facility] Comment on above: Non- GFR Calc Glucose measurementOrdered B y: Antonio Hyde on 09-20-2024 Glucose [Mass/Vol] 145 mg/dL High 74-106 [facility] Comment on above: Fasting Glucose resu lt greater than or equal to 126 mg/dL suggests DIABETES MELLITUS per A.D.A. criteria. Hematocrit Auto (Bld) [Volum e fraction]Ordered By: Antonio Hyde on 09-20-2024 Hematocrit (Bld) [Volume fraction] 35.8 % Low 37-47 [facility] Hemoglobin measurementOrdere d By: Antonio Hyde on 09-20-2024 Hemoglobin (Bld) [Mass/Vol] 11.6 g/dL Low 12.0-15.0 [facility] Iron (Unsp spec) [Mass/Mass] Ordered By: Antonio Hyde on 09-20-2024 Iron [Mass/Vol] 80 ug/dL 50-170 [facility] Iron saturation [Mass fracti on]Ordered By: Antonio Hyde on 09-20-2024 Iron Saturation 28.4 % 15.0-55.0 [facility] Iron+Iron Binding Capacityon 09-20-2024 Iron [Mass/Vol] 80 ug/dL Normal 50-170 [facility] Comment on above: Order Comment: 401.1 Performed By: #### L 506.1001, L500.4050, L501.9520, L100.0500, L501.9985 #### [facility] [address] [place], [place], [id number] IRON SATURATION 28.4 Normal 15.0-55.0 [facility] Comment on above: Order Comment: 401.1 Performed By: #### L 506.1001, L500.4050, L501.9520, L100.0500, L501.9985 #### [facility] [address] [place], [place], [id number] TIBC 282 ug/dL Normal 250-450 [facility] Comment on above: Order Comment: 401.1 Performed By: #### L 506.1001, L500.4050, L501.9520, L100.0500, L501.9985 #### [facility] [place], [address] Laboratory - Chemistry and C hemistry - challengeOrdered By: Antonio Hyde on 09-20-2024 AST [Catalytic activity/Vol] 45 U/L High 15-37 [facility] MCV (mean corpuscular volume ) determinationOrdered By: Antonio Hyde on 09-20-2024 MCV (RBC) [Entitic vol] 93.2 fL 81-99 [facility] Mean corpuscular hemoglobin (MCH) determinationOrdered By: Antonio Hyde on 09-20-2024 MCH (RBC) [Entitic mass] 30.2 pg 27.0-32.0 [facility] Mean corpuscular hemoglobin concentration (MCHC) determinationOrdered By: Antonio Hyde on 09-20-2024 MCHC (RBC) [Mass/Vol] 32.4 g/dL 32-36 [facility] Mean platelet volume determi nationOrdered By: Antonio Hyde on 09-20-2024 Platelet mean volume (Bld) [Entitic vol] 11.6 fL 6.2-12.0 [facility] Platelet countOrdered By: Shabana Hyde on 09-20-2024 Platelets (Bld) [#/Vol] 268 10*3/uL 150-450 [facility] Potassium measurementOrdered By: Antonio Hyde on 09-20-2024 Potassium [Moles/Vol] 4.6 mmol/L 3.5-5.1 [facility] RBC Auto (Bld) [#/Vol]Ordere d By: Antonio Hyde on 09-20-2024 RBC (Bld) [#/Vol] 3.84 10*6/uL Low 4.2-5.4 [facility] Serum anion gap measurementO rdered By: Antonio Hyde on 09-20-2024 Anion gap [Moles/Vol] 6 mmol/L 5-15 [facility] Serum globulin measurementOr dered By: Antonio Hyde on 09-20-2024 Globulin (S) [Mass/Vol] 3.8 g/dL 2.2-4.2 [facility] Serum or plasma alanine smart otransferase (ALT) measurementOrdered By: Antonio Hyde on 09-20-2024 ALT [Catalytic activity/Vol] 56 U/L 13-56 [facility] Serum or plasma albumin beena urement (mass/volume)Ordered By: Antonio Hyde on 09-20-2024 Albumin [Mass/Vol] 3.4 g/dL 3.2-5.0 [facility] Serum or plasma alkaline zeus sphatase measurementOrdered By: Antonio Hyde on 09-20-2024 ALP [Catalytic activity/Vol] 59 U/L 45-117 [facility] Serum or plasma calcium beena urement (mass/volume)Ordered By: Antonio Hyde on 09-20-2024 Calcium [Mass/Vol] 10.1 mg/dL 8.5-10.1 [facility] Serum or plasma creatinine m easurement (mass/volume)Ordered By: Antonio Hyde on 09-20-2024 Creatinine [Mass/Vol] 0.84 mg/dL 0.55-1.02 [facility] Comment on above: The validity of the calculated GFR & GFRAA in patients over 70 years has not been determined. Clinical correlation is essential. Serum or plasma thyroxine (T 4) measurement (mass/volume)Ordered By: Antonio Hyde on 09-20-2024 T4 [Mass/Vol] 10.4 ug/dL 4.8-13.9 [facility] Serum or plasma urea nitroge n measurement (mass/volume)Ordered By: Antonio Hyde on 09-20-2024 Urea nitrogen [Mass/Vol] 27 mg/dL High 7-18 [facility] Sodium levelOrdered By: Tonia Hyde on 09-20-2024 Sodium [Moles/Vol] 140 mmol/L 136-145 [facility] T3 IA [Mass/Vol]Ordered By: Antonio Hyde on 09-20-2024 Total Triiodothyronine 1.12 ng/mL 0.6-1.81 [facility] T3 Total - Triiodothyronineo n 09-20-2024 T3 Total 1.12 ng/mL Normal 0.6-1.81 [facility] Comment on above: Order Comment: 401.1 Performed By: #### L 506.1001, L500.4050, L501.9520, L100.0500, L501.9985 #### [facility] [address] [place], [address] T4 Total, Thyroxinon T4 [Mass/Vol] 10.4 ug/dL Normal 4.8-13.9 [facility] Comment on above: Order Comment: 401.1 Performed By: #### L 506.1001, L500.4050, L501.9520, L100.0500, L501.9985 #### [facility] [address] [place], [address] TIBCOrdered By: Antonio valle on 09-20-2024 Total Iron Binding Capacity 282 ug/dL 250-450 [facility] TSH QnOrdered By: Antonio shukla on 09-20-2024 Thyroid Stimulating Hormone (TSH) 3.450 uIU/mL 0.358-3.740 [facility] Thyroid Stim Hormone (TSH)on 09-20-2024 TSH 3.450 uIU/mL Normal 0.358-3.740 [facility] Comment on above: Order Comment: 401.1 Performed By: #### L 506.1001, L500.4050, L501.9520, L100.0500, L501.9985 #### [facility] [address] [place], [address] Total proteinOrdered By: Mabel Hyde on 09-20-2024 Protein [Mass/Vol] 7.2 g/dL 6.4-8.2 [facility] Vitamin D,25 Hydroxyon 09-20 Vitamin D 25-OH 64.4 ng/mL Normal [facility] Comment on above: Order Comment: 401.1 Result Comment: Lupe min D 25(OH) Status Range Deficiency <20 ng/mL (50nmol/L) Insufficiency 20 - 30 ng/mL (50 - 75 nmol/L) Sufficiency 30 - 100 ng/mL (75 - 250 nmol/L) Toxicity >100 ng/mL (>250 nmol/L) Performed By: #### L 506.1001, L500.4050, L501.9520, L100.0500, L501.9985 #### [facility] [address] [place], [address] White blood cell (WBC) count Ordered By: Antonio Hyde on 09-20-2024 WBC (Bld) [#/Vol] 7.6 10*3/uL 4.4-11.0 [facility] CBC-Complete Blood Cnt No Di ffon 04-05-2024 Erythrocyte distribution width (RBC) [Ratio] 12.8 % Normal 11.6-14.6 [facility] Comment on above: Order Comment: 401.1 Performed By: #### L 503.6150, L100.0500, L501.9310, L501.9186, L503.6550, L506.1000, L501.9520, L500.4050 #### [facility] [address] [place], [address] Hematocrit (Bld) [Volume fraction] 33.0 % Low 37-47 [facility] Comment on above: Order Comment: 401.1 Performed By: #### L 503.6150, L100.0500, L501.9310, L501.9186, L503.6550, L506.1000, L501.9520, L500.4050 #### [facility] [address] [place], [address] Hemoglobin (Bld) [Mass/Vol] 10.6 g/dL Low 12.0-15.0 [facility] Comment on above: Order Comment: 401.1 Performed By: #### L 503.6150, L100.0500, L501.9310, L501.9186, L503.6550, L506.1000, L501.9520, L500.4050 #### [facility] [address] [place], [address] MCH (RBC) [Entitic mass] 29.5 pg Normal 27.0-32.0 [facility] Comment on above: Order Comment: 401.1 Performed By: #### L 503.6150, L100.0500, L501.9310, L501.9186, L503.6550, L506.1000, L501.9520, L500.4050 #### [facility] [address] [place], [address] MCHC (RBC) [Mass/Vol] 32.1 g/dL Normal 32-36 [facility] Comment on above: Order Comment: 401.1 Performed By: #### L 503.6150, L100.0500, L501.9310, L501.9186, L503.6550, L506.1000, L501.9520, L500.4050 #### [facility] [address] [place], [address] MCV (RBC) [Entitic vol] 91.9 fL Normal 81-99 [facility] Comment on above: Order Comment: 401.1 Performed By: #### L 503.6150, L100.0500, L501.9310, L501.9186, L503.6550, L506.1000, L501.9520, L500.4050 #### [facility] [address] [place], [address] Platelet mean volume (Bld) [Entitic vol] 11.2 fL Normal 6.2-12.0 [facility] Comment on above: Order Comment: 401.1 Performed By: #### L 503.6150, L100.0500, L501.9310, L501.9186, L503.6550, L506.1000, L501.9520, L500.4050 #### [facility] [address] [place], [address] Platelets (Bld) [#/Vol] 241 10*3/uL Normal 150-450 [facility] Comment on above: Order Comment: 401.1 Performed By: #### L 503.6150, L100.0500, L501.9310, L501.9186, L503.6550, L506.1000, L501.9520, L500.4050 #### [facility] [address] [place], [address] RBC (Bld) [#/Vol] 3.59 10*6/uL Low 4.2-5.4 [facility] Comment on above: Order Comment: 401.1 Performed By: #### L 503.6150, L100.0500, L501.9310, L501.9186, L503.6550, L506.1000, L501.9520, L500.4050 #### [facility] [address] [place], [address] RDW SD 43.8 fl Normal 35.1-43.9 [facility] Comment on above: Order Comment: 401.1 Performed By: #### L 503.6150, L100.0500, L501.9310, L501.9186, L503.6550, L506.1000, L501.9520, L500.4050 #### [facility] [address] [place], [address] WBC (Bld) [#/Vol] 6.6 10*3/uL Normal 4.4-11.0 [facility] Comment on above: Order Comment: 401.1 Performed By: #### L 503.6150, L100.0500, L501.9310, L501.9186, L503.6550, L506.1000, L501.9520, L500.4050 #### [facility] [address] [place], [address] Comprehensive Metabolic Prof [facility] 04-05-2024 Albumin [Mass/Vol] 3.0 g/dL Low 3.2-5.0 [facility] Comment on above: Order Comment: 401.1 Performed By: #### L 503.6150, L100.0500, L501.9310, L501.9186, L503.6550, L506.1000, L501.9520, L500.4050 #### [facility] [address] [place], [address] Albumin/Globulin [Mass ratio] 0.9 {ratio} Normal 0.9-2.4 [facility] Comment on above: Order Comment: 401.1 Performed By: #### L 503.6150, L100.0500, L501.9310, L501.9186, L503.6550, L506.1000, L501.9520, L500.4050 #### [facility] [address] [place], [address] ALK P 62 U/L Normal 45-117 [facility] Comment on above: Order Comment: 401.1 Performed By: #### L 503.6150, L100.0500, L501.9310, L501.9186, L503.6550, L506.1000, L501.9520, L500.4050 #### [facility] [address] [place], [address] ALT [Catalytic activity/Vol] 31 U/L Normal 13-56 [facility] Comment on above: Order Comment: 401.1 Performed By: #### L 503.6150, L100.0500, L501.9310, L501.9186, L503.6550, L506.1000, L501.9520, L500.4050 #### [facility] [address] [place], [address] AST [Catalytic activity/Vol] 23 U/L Normal 15-37 [facility] Comment on above: Order Comment: 401.1 Performed By: #### L 503.6150, L100.0500, L501.9310, L501.9186, L503.6550, L506.1000, L501.9520, L500.4050 #### [facility] [address] [place], [address] Bilirubin [Mass/Vol] 0.80 mg/dL Normal 0.20-1.00 [facility] Comment on above: Order Comment: 401.1 Result Comment: For patients on eltrombopag therapy, use of Dimension [place] TBIL is not recommended. Performed By: #### L 503.6150, L100.0500, L501.9310, L501.9186, L503.6550, L506.1000, L501.9520, L500.4050 #### [facility] [address] [place], [address] BUN/CRE 30.1 RATIO High 10-20 [facility] Comment on above: Order Comment: 401.1 Performed By: #### L 503.6150, L100.0500, L501.9310, L501.9186, L503.6550, L506.1000, L501.9520, L500.4050 #### [facility] [address] [place], [address] CA,Total 9.4 mg/dL Normal 8.5-10.1 [facility] Comment on above: Order Comment: 401.1 Performed By: #### L 503.6150, L100.0500, L501.9310, L501.9186, L503.6550, L506.1000, L501.9520, L500.4050 #### [facility] [address] [place], [address] Chloride [Moles/Vol] 109 mmol/L High 98-107 [facility] Comment on above: Order Comment: 401.1 Performed By: #### L 503.6150, L100.0500, L501.9310, L501.9186, L503.6550, L506.1000, L501.9520, L500.4050 #### [facility] [address] [place], [address] CO2 [Moles/Vol] 27.0 mmol/L Normal 21.0-32.0 [facility] Comment on above: Order Comment: 401.1 Performed By: #### L 503.6150, L100.0500, L501.9310, L501.9186, L503.6550, L506.1000, L501.9520, L500.4050 #### [facility] [address] [place], [address] Creatinine [Mass/Vol] 0.93 mg/dL Normal 0.55-1.02 [facility] Comment on above: Order Comment: 401.1 Result Comment: The validity of the calculated GFR GFRAA in patients over 70 years has not been determined. Clinical correlation is essential. Performed By: #### L 503.6150, L100.0500, L501.9310, L501.9186, L503.6550, L506.1000, L501.9520, L500.4050 #### [facility] [address] [place], [address] EST GFR - AA 74 mL/min Normal >60 [facility] Comment on above: Order Comment: 401.1 Result Comment: Afri can Macanese GFR Calc Performed By: #### L 503.6150, L100.0500, L501.9310, L501.9186, L503.6550, L506.1000, L501.9520, L500.4050 #### [facility] [address] [place], [address] GAP 5 Normal 5-15 [facility] Comment on above: Order Comment: 401.1 Performed By: #### L 503.6150, L100.0500, L501.9310, L501.9186, L503.6550, L506.1000, L501.9520, L500.4050 #### [facility] [address] [place], [address] GFR/1.73 sq M.predicted among non-blacks MDRD (S/P/Bld) [Vol rate/Area] 61 mL/min/{1.73_m2} Normal >60 [facility] Comment on above: Order Comment: 401.1 Result Comment: Non- GFR Calc Performed By: #### L 503.6150, L100.0500, L501.9310, L501.9186, L503.6550, L506.1000, L501.9520, L500.4050 #### [facility] [address] [place], [address] Globulin (S) [Mass/Vol] 3.4 g/dL Normal 2.2-4.2 [facility] Comment on above: Order Comment: 401.1 Performed By: #### L 503.6150, L100.0500, L501.9310, L501.9186, L503.6550, L506.1000, L501.9520, L500.4050 #### [facility] [address] [place], [address] Glucose [Mass/Vol] 152 mg/dL High 74-106 [facility] Comment on above: Order Comment: 401.1 Result Comment: Fast ing Glucose result greater than or equal to 126 mg/dL suggests DIABETES MELLITUS per A.D.A. criteria. Performed By: #### L 503.6150, L100.0500, L501.9310, L501.9186, L503.6550, L506.1000, L501.9520, L500.4050 #### [facility] [address] [place], [address] Potassium [Moles/Vol] 4.7 mmol/L Normal 3.5-5.1 [facility] Comment on above: Order Comment: 401.1 Performed By: #### L 503.6150, L100.0500, L501.9310, L501.9186, L503.6550, L506.1000, L501.9520, L500.4050 #### [facility] [address] [place], [address] Sodium [Moles/Vol] 141 mmol/L Normal 136-145 [facility] Comment on above: Order Comment: 401.1 Performed By: #### L 503.6150, L100.0500, L501.9310, L501.9186, L503.6550, L506.1000, L501.9520, L500.4050 #### [facility] [address] [place], [address] T PROT 6.4 g/dL Normal 6.4-8.2 [facility] Comment on above: Order Comment: 401.1 Performed By: #### L 503.6150, L100.0500, L501.9310, L501.9186, L503.6550, L506.1000, L501.9520, L500.4050 #### [facility] [address] [place], [address] Urea nitrogen [Mass/Vol] 28 mg/dL High 7-18 [facility] Comment on above: Order Comment: 401.1 Performed By: #### L 503.6150, L100.0500, L501.9310, L501.9186, L503.6550, L506.1000, L501.9520, L500.4050 #### [facility] [address] [place], [address] Ferritinon 04-05-2024 Ferritin [Mass/Vol] 160 ng/mL Normal 8-252 [facility] Comment on above: Order Comment: 401.1 Performed By: #### L 506.1001, L500.4050, L501.9520, L100.0500, L501.9985 #### [facility] [address] [place], [address] Ironon 04-05-2024 Iron [Mass/Vol] 78 ug/dL Normal 50-170 [facility] Comment on above: Order Comment: 401.1 Performed By: #### L 506.1001, L500.4050, L501.9520, L100.0500, L501.9985 #### [facility] [address] [place], [address] T3 Total - Triiodothyronineo n 04-05-2024 T3 Total 1.22 ng/mL Normal 0.6-1.81 [facility] Comment on above: Order Comment: 401.1 Performed By: #### L 506.1001, L500.4050, L501.9520, L100.0500, L501.9985 #### [facility] [address] [place], [address] T4 Total, Thyroxinon 024 T4 [Mass/Vol] 10.7 ug/dL Normal 4.8-13.9 [facility] Comment on above: Order Comment: 401.1 Performed By: #### L 506.1001, L500.4050, L501.9520, L100.0500, L501.9985 #### [facility] [address] [place], [address] Thyroid Stim Hormone (TSH)on 04-05-2024 TSH 2.260 uIU/mL Normal 0.358-3.740 [facility] Comment on above: Order Comment: 401.1 Performed By: #### L 506.1001, L500.4050, L501.9520, L100.0500, L501.9985 #### [facility] [address] [place], [address] Vitamin D,25 Hydroxyon 04-05 Vitamin D 25-OH 65.6 ng/mL Normal [facility] Comment on above: Order Comment: 401.1 Result Comment: Lupe min D 25(OH) Status Range Deficiency <20 ng/mL (50nmol/L) Insufficiency 20 - 30 ng/mL (50 - 75 nmol/L) Sufficiency 30 - 100 ng/mL (75 - 250 nmol/L) Toxicity >100 ng/mL (>250 nmol/L) Performed By: #### L 506.1001, L500.4050, L501.9520, L100.0500, L501.9985 #### [facility] [address] [place], [address] Basophil percentageOrdered B y: Antonio Hyde on 10-30-2023 Bilirubin [Mass/Vol] 0.70 mg/dL 0.20-1.00 [facility] Comment on above: For patients on eltr ombopag therapy, use of Dimension [place] TBIL is not recommended. Chloride [Moles/Vol] 110 mmol/L 98-107 [facility] Glucose [Mass/Vol] 131 mg/dL 74-106 [facility] Comment on above: Fasting Glucose resu lt greater than or equal to 126 mg/dL suggests DIABETES MELLITUS per A.D.A. criteria. Hemoglobin (Bld) [Mass/Vol] 11.3 g/dL 12.0-15.0 [facility] Potassium [Moles/Vol] 4.9 mmol/L 3.5-5.1 [facility] Protein [Mass/Vol] 6.5 g/dL 6.4-8.2 [facility] Sodium [Moles/Vol] 140 mmol/L 136-145 [facility] WBC (Bld) [#/Vol] 6.5 10*3/uL 4.4-11.0 [facility] Determination of erythrocyte mean corpuscular volume (MCV)Ordered By: Antonio Hyde on 10-30-2023 MCV (RBC) [Entitic vol] 93.5 fL 81-99 [facility] Erythrocyte distribution wid th ratioOrdered By: Antonio Hyde on 10-30-2023 Erythrocyte distribution width (RBC) [Ratio] 13.1 % 11.6-14.6 [facility] Erythrocyte distribution wid th standard deviationOrdered By: Antonio Hyde on 10-30-2023 Erythrocyte distribution width (RBC) [Entitic vol] 44.7 fL 35.1-43.9 [facility] Hematocrit Auto (Bld) [Volum e fraction]Ordered By: Antonio Hyde on 10-30-2023 Hematocrit (Bld) [Volume fraction] 35.7 % 37-47 [facility] - Chemistry and C hemistry - challengeOrdered By: Antonio Hyde on 10-30-2023 Albumin/Globulin [Mass ratio] 1.0 {ratio} 0.9-2.4 [facility] ALP [Catalytic activity/Vol] 55 U/L 45-117 [facility] ALT [Catalytic activity/Vol] 23 U/L 13-56 [facility] CO2 [Moles/Vol] 26.0 mmol/L 21.0-32.0 [facility] Globulin (S) [Mass/Vol] 3.3 g/dL 2.2-4.2 [facility] Urea nitrogen/Creatinine [Mass ratio] 34.4 mg/mg 10-20 [facility] - Hematology and Cell countsOrdered By: Antonio Hyde on 10-30-2023 MCH (RBC) [Entitic mass] 29.6 pg 27.0-32.0 [facility] MCHC (RBC) [Mass/Vol] 31.7 g/dL 32-36 [facility] Platelet mean volume (Bld) [Entitic vol] 11.0 fL 6.2-12.0 [facility] Platelets (Bld) [#/Vol] 249 10*3/uL 150-450 [facility] No Panel InformationOrdered By: Antonio Hyde on 10-30-2023 Estimated GFR (MDRD) Amer 74 mL/min >60 [facility] Comment on above: GFR Calc Estimated GFR (MDRD) Non-Af Amer 61 mL/min >60 [facility] Comment on above: Non- GFR Calc Free Triiodothyronine (T3) pg/dL 2.9 pg/mL 2.18-3.98 [facility] Vitamin D 25-Hydroxy 61.5 ng/mL [facility] Comment on above: Vitamin D 25(OH) Sta tus Range Deficiency <20 ng/mL (50nmol/L) Insufficiency 20 - 30 ng/mL (50 - 75 nmol/L) Sufficiency 30 - 100 ng/mL (75 - 250 nmol/L) Toxicity >100 ng/mL (>250 nmol/L) RBC Auto (Bld) [#/Vol]Ordere d By: Antnoio Hyde on 10-30-2023 RBC (Bld) [#/Vol] 3.82 10*6/uL 4.2-5.4 [facility] Serum or plasma calcium beena urement (mass/volume)Ordered By: Antonio Hyde on 10-30-2023 Calcium [Mass/Vol] 9.3 mg/dL 8.5-10.1 [facility] Serum or plasma creatinine m easurement (mass/volume)Ordered By: Antonio Hyde on 10-30-2023 Creatinine [Mass/Vol] 0.93 mg/dL 0.55-1.02 [facility] Comment on above: The validity of the calculated GFR & GFRAA in patients over 70 years has not been determined. Clinical correlation is essential. Serum or plasma urea nitroge n measurement (mass/volume)Ordered By: Antonio Hyde on 10-30-2023 Urea nitrogen [Mass/Vol] 32 mg/dL 7-18 [facility] Thin prep Papanicolaou smear with manual screeningOrdered By: Antonio Hyde on 10-30-2023 Thin prep Papanicolaou smear with manual screening 3.2 g/dL 3.2-5.0 [facility] Thin prep Papanicolaou smear with manual screening 21 U/L 15-37 [facility] Thin prep Papanicolaou smear with manual screening 4 5-15 [facility] Thin prep Papanicolaou smear with manual screening 1.28 ng/dL 0.76-1.46 [facility] Whole blood hemoglobin A1c/t otal hemoglobin ratio (mass fraction)Ordered By: Antonio Hyde on 10-30-2023 HbA1c (Bld) [Mass fraction] 7.4 % 3.8-5.6 [facility] Comment on above: Normal < 5.7 % Predi abetic 5.7 - 6.4 % Diabetic >or= 6.5 % Please note range changes. Basophil percentageOrdered B y: Antonio Hyde on 08-15-2023 WBC (Bld) [#/Vol] 8.4 10*3/uL 4.4-11.0 [facility] Blood erythrocytes count (nu mber/volume)Ordered By: Antonio Hyde on 08-15-2023 RBC (Bld) [#/Vol] 4.08 10*6/uL 4.2-5.4 [facility] Blood hemoglobin measurement (mass/volume)Ordered By: Antonio Hyde on 08-15-2023 Hemoglobin (Bld) [Mass/Vol] 11.7 g/dL 12.0-15.0 [facility] Blood platelet mean volumeOr dered By: Antonio Hyde on 08-15-2023 Platelet mean volume (Bld) [Entitic vol] 10.9 fL 6.2-12.0 [facility] Determination of erythrocyte mean corpuscular volume (MCV)Ordered By: Antonio Hyde on 08-15-2023 MCV (RBC) [Entitic vol] 93.6 fL 81-99 [facility] Hematocrit Auto (Bld) [Volum e fraction]Ordered By: Antonio Hyde on 08-15-2023 Hematocrit (Bld) [Volume fraction] 38.2 % 37-47 [facility] - Hematology and Cell countsOrdered By: Antonio Hyde on 08-15-2023 Erythrocyte distribution width (RBC) [Entitic vol] 46.6 fL 35.1-43.9 [facility] Erythrocyte distribution width (RBC) [Ratio] 13.7 % 11.6-14.6 [facility] MCH (RBC) [Entitic mass] 28.7 pg 27.0-32.0 [facility] MCHC Auto (RBC) [Mass/Vol]Or dered By: Antonio Hyde on 08-15-2023 MCHC (RBC) [Mass/Vol] 30.6 g/dL 32-36 [facility] Platelets bldOrdered By: Mabel Hyde on 08-15-2023 Platelets (Bld) [#/Vol] 360 10*3/uL 150-450 [facility] Basophil percentageOrdered B y: Antonio Hyde on 05-05-2023 Bilirubin [Mass/Vol] 0.50 mg/dL 0.20-1.00 [facility] Comment on above: For patients on eltr ombopag therapy, use of Dimension [place] TBIL is not recommended. Chloride [Moles/Vol] 109 mmol/L 98-107 [facility] Cholesterol [Mass/Vol] 115 mg/dL <200 [facility] Comment on above: <200 mg/dL Desirable 200-240 mg/dL Borderline >240 mg/dL High Risk Glucose [Mass/Vol] 131 mg/dL 74-106 [facility] Comment on above: Fasting Glucose resu lt greater than or equal to 126 mg/dL suggests DIABETES MELLITUS per A.D.A. criteria. Potassium [Moles/Vol] 4.1 mmol/L 3.5-5.1 [facility] Protein [Mass/Vol] 6.5 g/dL 6.4-8.2 [facility] Sodium [Moles/Vol] 140 mmol/L 136-145 [facility] Triglyceride [Mass/Vol] 90 mg/dL <199 [facility] Comment on above: The drugs N-Acetylcy steine and Metamizole may falsely depress this assay.Serum Triglycerides Reference Interval Normal <150 mg/dL Borderline high 150 - 199 mg/dL High 200 - 499 mg/dL Very High > or = 500 mg/dL WBC (Bld) [#/Vol] 8.2 10*3/uL 4.4-11.0 [facility] Blood erythrocytes count (nu mber/volume)Ordered By: Antonio Hyde on 05-05-2023 RBC (Bld) [#/Vol] 3.54 10*6/uL 4.2-5.4 [facility] Blood hemoglobin measurement (mass/volume)Ordered By: Antonio Hyde on 05-05-2023 Hemoglobin (Bld) [Mass/Vol] 10.5 g/dL 12.0-15.0 [facility] Blood platelet mean volumeOr dered By: Antonio Hyde on 05-05-2023 Platelet mean volume (Bld) [Entitic vol] 10.8 fL 6.2-12.0 [facility] Determination of erythrocyte mean corpuscular volume (MCV)Ordered By: Antonio Hyde on 05-05-2023 MCV (RBC) [Entitic vol] 94.6 fL 81-99 [facility] Hematocrit Auto (Bld) [Volum e fraction]Ordered By: Antonio Hyde on 05-05-2023 Hematocrit (Bld) [Volume fraction] 33.5 % 37-47 [facility] - Chemistry and C hemistry - challengeOrdered By: Antonio Hyde on 05-05-2023 ALP [Catalytic activity/Vol] 65 U/L 45-117 [facility] ALT [Catalytic activity/Vol] 34 U/L 13-56 [facility] CO2 [Moles/Vol] 25.0 mmol/L 21.0-32.0 [facility] Globulin (S) [Mass/Vol] 3.3 g/dL 2.2-4.2 [facility] Urea nitrogen/Creatinine [Mass ratio] 37.4 mg/mg 10-20 [facility] - Hematology and Cell countsOrdered By: Antonio Hyde on 05-05-2023 Erythrocyte distribution width (RBC) [Entitic vol] 43.7 fL 35.1-43.9 [facility] Erythrocyte distribution width (RBC) [Ratio] 12.5 % 11.6-14.6 [facility] MCH (RBC) [Entitic mass] 29.7 pg 27.0-32.0 [facility] MCHC Auto (RBC) [Mass/Vol]Or dered By: Antonio Hyde on 05-05-2023 MCHC (RBC) [Mass/Vol] 31.3 g/dL 32-36 [facility] No Panel InformationOrdered By: Antonio Hyde on 05-05-2023 Estimated GFR (MDRD) Amer 74 mL/min >60 [facility] Comment on above: GFR Calc Estimated GFR (MDRD) Non-Af Amer 61 mL/min >60 [facility] Comment on above: Non- GFR Calc Thyroid Stimulating Hormone (TSH) 2.83 uIU/mL 0.358-3.74 [facility] Vitamin D 25-Hydroxy 57.1 ng/mL [facility] Comment on above: Vitamin D 25(OH) Sta tus Range Deficiency <20 ng/mL (50nmol/L) Insufficiency 20 - 30 ng/mL (50 - 75 nmol/L) Sufficiency 30 - 100 ng/mL (75 - 250 nmol/L) Toxicity >100 ng/mL (>250 nmol/L) Platelets bldOrdered By: Mabel Hyde on 05-05-2023 Platelets (Bld) [#/Vol] 283 10*3/uL 150-450 [facility] Serum or plasma albumin beena urement (mass/volume)Ordered By: Antonio Hyde on 05-05-2023 Albumin [Mass/Vol] 3.2 g/dL 3.2-5.0 [facility] Serum or plasma albumin/glob ulin mass ratioOrdered By: Antonio Hyde on 05-05-2023 Albumin/Globulin [Mass ratio] 1.0 {ratio} 0.9-2.4 [facility] Serum or plasma calcium beena urement (mass/volume)Ordered By: Antonio Hyde on 05-05-2023 Calcium [Mass/Vol] 9.0 mg/dL 8.5-10.1 [facility] Serum or plasma cholesterol in HDL measurement (mass/volume)Ordered By: Antonio Hyde on 05-05-2023 Cholesterol in HDL [Mass/Vol] 62 mg/dL >40 [facility] Comment on above: The drugs N-Acetylcy steine and Metamizole may falsely depress this assay. Reference Range HDL <40 mg/dL Low HDL Cholesterol HDL >or= 60 mg/dL High HDL Cholesterol Serum or plasma cholesterol in VLDL measurement (mass/volume)Ordered By: Antonio Hyde on 05-05-2023 Cholesterol in VLDL [Mass/Vol] 18 mg/dL 5-40 [facility] Serum or plasma creatinine m easurement (mass/volume)Ordered By: Antonio Hyde on 05-05-2023 Creatinine [Mass/Vol] 0.94 mg/dL 0.55-1.02 [facility] Comment on above: The validity of the calculated GFR & GFRAA in patients over 70 years has not been determined. Clinical correlation is essential. Serum or plasma low density lipoprotein (LDL) cholesterol measurement (mass/volume)Ordered By: Antonio Hyde on 05-05-2023 Cholesterol in LDL [Mass/Vol] 35 mg/dL 0-130 [facility] Serum or plasma urea nitroge n measurement (mass/volume)Ordered By: Antonio Hyde on 05-05-2023 Urea nitrogen [Mass/Vol] 35 mg/dL 7-18 [facility] Thin prep Papanicolaou smear with manual screeningOrdered By: Antonio Hyde on 05-05-2023 Thin prep Papanicolaou smear with manual screening 20 U/L 15-37 [facility] Thin prep Papanicolaou smear with manual screening 6 5-15 [facility] Basophil percentageOrdered B y: Dr. Hyde on 11-04-2022 Bilirubin [Mass/Vol] 0.60 mg/dL 0.20-1.00 [facility] Comment on above: For patients on eltr ombopag therapy, use of Dimension [place] TBIL is not recommended. Chloride [Moles/Vol] 110 mmol/L 98-107 [facility] Cholesterol [Mass/Vol] 125 mg/dL <200 [facility] Comment on above: <200 mg/dL Desirable 200-240 mg/dL Borderline >240 mg/dL High Risk Glucose [Mass/Vol] 129 mg/dL 74-106 [facility] Comment on above: Fasting Glucose resu lt greater than or equal to 126 mg/dL suggests DIABETES MELLITUS per A.D.A. criteria. Potassium [Moles/Vol] 4.5 mmol/L 3.5-5.1 [facility] Protein [Mass/Vol] 6.9 g/dL 6.4-8.2 [facility] Sodium [Moles/Vol] 142 mmol/L 136-145 [facility] Triglyceride [Mass/Vol] 66 mg/dL <199 [facility] Comment on above: The drugs N-Acetylcy steine and Metamizole may falsely depress this assay.Serum Triglycerides Reference Interval Normal <150 mg/dL Borderline high 150 - 199 mg/dL High 200 - 499 mg/dL Very High > or = 500 mg/dL WBC (Bld) [#/Vol] 9.1 10*3/uL 4.4-11.0 [facility] Blood erythrocytes count (nu mber/volume)Ordered By: Dr. Hyde on 11-04-2022 RBC (Bld) [#/Vol] 3.85 10*6/uL 4.2-5.4 [facility] Blood hemoglobin measurement (mass/volume)Ordered By: Dr. Hyde on 11-04-2022 Hemoglobin (Bld) [Mass/Vol] 11.3 g/dL 12.0-15.0 [facility] Blood platelet mean volumeOr dered By: Dr. Hyde on 11-04-2022 Platelet mean volume (Bld) [Entitic vol] 10.8 fL 6.2-12.0 [facility] Determination of erythrocyte mean corpuscular volume (MCV)Ordered By: Dr. Hyde on 11-04-2022 MCV (RBC) [Entitic vol] 94.5 fL 81-99 [facility] Hematocrit Auto (Bld) [Volum e fraction]Ordered By: Dr. Hyde on 11-04-2022 Hematocrit (Bld) [Volume fraction] 36.4 % 37-47 [facility] - Chemistry and C hemistry - challengeOrdered By: Dr. Hyde on 11-04-2022 ALP [Catalytic activity/Vol] 73 U/L 45-117 [facility] ALT [Catalytic activity/Vol] 33 U/L 13-56 [facility] CO2 [Moles/Vol] 29.0 mmol/L 21.0-32.0 [facility] Globulin (S) [Mass/Vol] 3.6 g/dL 2.2-4.2 [facility] Urea nitrogen/Creatinine [Mass ratio] 31.4 mg/mg 10-20 [facility] - Hematology and Cell countsOrdered By: Dr. Hyde on 11-04-2022 Erythrocyte distribution width (RBC) [Entitic vol] 45.4 fL 35.1-43.9 [facility] Erythrocyte distribution width (RBC) [Ratio] 13.2 % 11.6-14.6 [facility] MCH (RBC) [Entitic mass] 29.4 pg 27.0-32.0 [facility] MCHC Auto (RBC) [Mass/Vol]Or dered By: Dr. Hyde on 11-04-2022 MCHC (RBC) [Mass/Vol] 31.0 g/dL 32-36 [facility] No Panel InformationOrdered By: Dr. Hyde on 11-04-2022 Estimated GFR (MDRD) Amer 72 mL/min >60 [facility] Comment on above: GFR Calc Estimated GFR (MDRD) Non-Af Amer 60 mL/min >60 [facility] Comment on above: Non- GFR Calc Thyroid Stimulating Hormone (TSH) 2.48 uIU/mL 0.358-3.74 [facility] Vitamin D 25-Hydroxy 66.2 ng/mL [facility] Comment on above: Vitamin D 25(OH) Sta tus Range Deficiency <20 ng/mL (50nmol/L) Insufficiency 20 - 30 ng/mL (50 - 75 nmol/L) Sufficiency 30 - 100 ng/mL (75 - 250 nmol/L) Toxicity >100 ng/mL (>250 nmol/L) Platelets bldOrdered By: Dr. Hyde on 11-04-2022 Platelets (Bld) [#/Vol] 313 10*3/uL 150-450 [facility] Serum or plasma albumin beena urement (mass/volume)Ordered By: Dr. Hyde on 11-04-2022 Albumin [Mass/Vol] 3.3 g/dL 3.2-5.0 [facility] Serum or plasma albumin/glob ulin mass ratioOrdered By: Dr. Hyde on 11-04-2022 Albumin/Globulin [Mass ratio] 0.9 {ratio} 0.9-2.4 [facility] Serum or plasma calcium beena urement (mass/volume)Ordered By: Dr. Hyde on 11-04-2022 Calcium [Mass/Vol] 9.2 mg/dL 8.5-10.1 [facility] Serum or plasma cholesterol in HDL measurement (mass/volume)Ordered By: Dr. Hyde on 11-04-2022 Cholesterol in HDL [Mass/Vol] 63 mg/dL >40 [facility] Comment on above: The drugs N-Acetylcy steine and Metamizole may falsely depress this assay. Reference Range HDL <40 mg/dL Low HDL Cholesterol HDL >or= 60 mg/dL High HDL Cholesterol Serum or plasma cholesterol in VLDL measurement (mass/volume)Ordered By: Dr. Hyde on 11-04-2022 Cholesterol in VLDL [Mass/Vol] 13 mg/dL 5-40 [facility] Serum or plasma creatinine m easurement (mass/volume)Ordered By: Dr. Hyde on 11-04-2022 Creatinine [Mass/Vol] 0.95 mg/dL 0.55-1.02 [facility] Comment on above: The validity of the calculated GFR & GFRAA in patients over 70 years has not been determined. Clinical correlation is essential. Serum or plasma low density lipoprotein (LDL) cholesterol measurement (mass/volume)Ordered By: Dr. Hyde on 11-04-2022 Cholesterol in LDL [Mass/Vol] 49 mg/dL 0-130 [facility] Serum or plasma urea nitroge n measurement (mass/volume)Ordered By: Dr. Hyde on 11-04-2022 Urea nitrogen [Mass/Vol] 30 mg/dL 7-18 [facility] Thin prep Papanicolaou smear with manual screeningOrdered By: Dr. Hyde on 11-04-2022 Thin prep Papanicolaou smear with manual screening 23 U/L 15-37 [facility] Thin prep Papanicolaou smear with manual screening 3 5-15 [facility] Basophil percentageon 2021 Bilirubin [Mass/Vol] 0.70 mg/dL 0.20-1.00 [facility] Work Phone: Comment on above: For patients on eltr ombopag therapy, use of Dimension [place] TBIL is not recommended. Chloride [Moles/Vol] 110 mmol/L 98-107 [facility] Work Phone: Glucose [Mass/Vol] 177 mg/dL 74-106 [facility] Work Phone: Comment on above: Fasting Glucose resu lt greater than or equal to 126 mg/dL suggests DIABETES MELLITUS per A.D.A. criteria. Potassium [Moles/Vol] 4.7 mmol/L 3.5-5.1 [facility] Work Phone: Protein [Mass/Vol] 6.4 g/dL 6.4-8.2 [facility] Work Phone: Sodium [Moles/Vol] 140 mmol/L 136-145 [facility] Work Phone: WBC (Bld) [#/Vol] 8.1 10*3/uL 4.4-11.0 [facility] Work [facility]: Blood erythrocytes count (nu mber/volume)on 11-07-2021 RBC (Bld) [#/Vol] 3.60 10*6/uL 4.2-5.4 [facility] measurement (mass/volume)on 11-07-2021 Hemoglobin (Bld) [Mass/Vol] 10.7 g/dL 12.0-15.0 [facility] Work Phone: Blood platelet mean volumeon 11-07-2021 Platelet mean volume (Bld) [Entitic vol] 10.5 fL 6.2-12.0 [facility] Work Phone: Determination of erythrocyte mean corpuscular volume (MCV)on 11-07-2021 MCV (RBC) [Entitic vol] 91.4 fL 81-99 [facility] Work Phone: Hematocrit Auto (Bld) [Volum e fraction]on 11-07-2021 Hematocrit (Bld) [Volume fraction] 32.9 % 37-47 [facility] Work Phone: Laboratory - Chemistry and C hemistry - challengeon 11-07-2021 ALP [Catalytic activity/Vol] 68 U/L 45-117 [facility] Work Phone: ALT [Catalytic activity/Vol] 18 U/L 13-56 [facility] Work Phone: CO2 [Moles/Vol] 27.0 mmol/L 21.0-32.0 [facility] Work Phone: Globulin (S) [Mass/Vol] 3.3 g/dL 2.2-4.2 [facility] Work Phone: Urea nitrogen/Creatinine [Mass ratio] 26.9 mg/mg 10-20 [facility] Work Phone: Laboratory - Hematology and Cell countson 11-07-2021 Erythrocyte distribution width (RBC) [Entitic vol] 41.6 fL 35.1-43.9 [facility] Work Phone: Erythrocyte distribution width (RBC) [Ratio] 12.4 % 11.6-14.6 [facility] Work Phone: MCH (RBC) [Entitic mass] 29.7 pg 27.0-32.0 [facility] Work Phone: MCHC Auto (RBC) [Mass/Vol]on 11-07-2021 MCHC (RBC) [Mass/Vol] 32.5 g/dL 32-36 [facility] Work Phone: No Panel Informationon 11-07 Estimated GFR (MDRD) Amer 65 mL/min >60 [facility] Work Phone: Comment on above: GFR Calc Estimated GFR (MDRD) Non-Af Amer 54 mL/min >60 [facility] Work Phone: Comment on above: Non- GFR Calc Thyroid Stimulating Hormone (TSH) 1.80 uIU/mL 0.358-3.74 [facility] Work Phone: Platelets bldon 11-07-2021 Platelets (Bld) [#/Vol] 302 10*3/uL 150-450 [facility] Work Phone: Serum or plasma albumin beena urement (mass/volume)on 11-07-2021 Albumin [Mass/Vol] 3.1 g/dL 3.2-5.0 [facility] Work Phone: Serum or plasma albumin/glob ulin mass ratioon 11-07-2021 Albumin/Globulin [Mass ratio] 0.9 {ratio} 0.9-2.4 [facility] Work Phone: Serum or plasma calcium beena urement (mass/volume)on 11-07-2021 Calcium [Mass/Vol] 9.1 mg/dL 8.5-10.1 [facility] Work Phone: Serum or plasma creatinine m easurement (mass/volume)on 11-07-2021 Creatinine [Mass/Vol] 1.04 mg/dL 0.55-1.02 [facility] Work Phone: Comment on above: The validity of the calculated GFR & GFRAA in patients over 70 years has not been determined. Clinical correlation is essential. Serum or plasma urea nitroge n measurement (mass/volume)on 11-07-2021 Urea nitrogen [Mass/Vol] 28 mg/dL 7-18 [facility] Work Phone: Thin prep Papanicolaou smear with manual screeningon 11-07-2021 Thin prep Papanicolaou smear with manual screening 15 U/L 15-37 [facility] Work Phone: Thin prep Papanicolaou smear with manual screening 3 5-15 [facility] Work Phone: Whole blood hemoglobin A1c/t otal hemoglobin ratio (mass fraction)on 11-07-2021 HbA1c (Bld) [Mass fraction] 8.8 % 3.8-5.6 [facility] Work Phone: Comment on above: Normal < 5.7 % Predi abetic 5.7 - 6.4 % Diabetic >or= 6.5 % Please note range changes. BD BONE DENSITY DEXA AXIAL S Singh 10-20-2020 BD BONE DENSITY DEXA AXIAL SKELETON ORIGINAL BONE DENSITOMETRY CLINICAL STATEMENT: osteopenia COMPARISON: 09/17/2016 T Score Lumbar Spine L1-L4: 0.1 BMD (g/cm2) Lumbar Spine L1-L4: 1.063 T Score Right Femoral Neck: 0.5 BMD (g/cm2) Right Femoral Neck: 0.908 T Score Right Hip: 0.6 BMD (g/cm2) Right Hip: 1.011 COMMENTS:Normal bone density CONCLUSION: The patient is considered to have normal bone density based on the lumbar spine which has a T score of 0.1. BMD Change from previous Hip: -0.3 %, representing no significant change BMD Change from previous Lumbar Spine: 3.6 %, representing a significant change *By the World Health Organization standards: Osteopenia is present when the bone mineral density is greater than 1 standard deviation (SD) but less than 2.5 SDs below a young normal sex matched population. Osteoporosis is present when the bone mineral density is equal to or greater than 2.5 SDs below a young normal sex matched population. Interpreted By: Abdulkadir Seymour Preliminary Report By: Abdulkadir Seymour Electronically Signed By: Abdulkadir Seymour Dictated Date: 10/20/2020 11:22:59 AM Prelim Date: 10/20/2020 11:22:59 AM Sign Date: 10/20/2020 11:26:06 AM Ordering Provider:Antonio Hyde [facility] ([place]) SURGon 08-06-2019 SURG -- ---- Patient: ABDULKADIR CHÁVEZ ---- SPECIMEN: [id number] Collection Date: 08/06/19 Received: 08/09/19 Status: NOEMY Phillip Dr.: Daphne Narvaez MD Ph# Othr. : Antonio Hyde DO Material for Examination: A GASTRIC POLYP B DUODENAL BX, R/O DUODENITIS C GASTRIC BX, R/O H. PYLORI D DISTAL ESOPHAGEAL BX, R/O MCCARTHY'S PRE-OP DIAGNOSIS: MCCARTHY'S ESOPHAGUS POST-OP DIAGNOSIS: NONE GIVEN SURGICAL PROCEDURE: NONE GIVEN DIAGNOSIS A. Gastric polyp, polypectomy: Hyperplastic polyp. B. Duodenum, biopsy: No pathologic change. Celiac disease not identified. C. Stomach, biopsy: Mild chronic gastritis. An immunostain for Helicobacter is negative. D. 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 Dysplasia or carcinoma not identified. GROSS DESCRIPTION A. The specimen is received in formalin and labeled with the patient's name, ID and designated gastric polyp, are 2 silverio portions of tissue, 0.3 x 0.1 x 0.1 cm and 0.4 x 0.1 x 0.1 cm. Entirely submitted in cassette A1. B. The specimen is received in formalin and labeled with the patient's name, ID and designated duodenal biopsy, are 2 silverio portions of tissue, 0.2 x 0.2 x 0.1 cm each. Entirely submitted in cassette B1. C. The specimen is received in formalin and labeled with the patient's name, ID and designated gastric biopsy, are 2 silverio portions of tissue, 0.3 x 0.1 x 0.1 cm and 0.4 x 0.1 x 0.1 cm. Entirely submitted in cassette C1. D. The specimen is received in formalin and labeled with the patient's name, ID and designated distal esophageal biopsy, are 2 silverio portions of tissue, 0.2 x 0.1 x 0.1 cm and 0.3 x 0.1 x 0.1 cm. The specimen is entirely submitted in cassette D1. ---- [facility] NAME: ABDULKADIR CHÁVEZ Pathology and Laboratory Medicine UNIT#: [id number] LOC: [facility] Quality Engineer Medical Device: Alisha Nielson M.D. [id number] ROOM/BED: Prescreen [facility] : 40 AGE/SEX: 79/F ORD.DR. Narvaez,Daphne Lerma MD CONTINUED ON NEXT PAGE ---- Patient: ABDULKADIR CHÁVEZ Unit#: [id number] (continued) SPECIMEN: [id number] MICROSCOPIC DESCRIPTION 8 William stained slides reviewed and an immunohistochemical stain for Helicobacter reviewed. /pm 08/10/19 COPIES TO: Antonio Hyde Sameh S MD Signed Verified/Reviewed by ALMA CASTAÑEDA MD 08/10/19 This dictation was created using voice recognition software. Phonetic and/or minor grammatical errors may exist. ---- [facility] NAME: ABDULKADIR CHÁVEZ Pathology and Laboratory Medicine UNIT#: [id number] LOC: [facility] Quality Engineer Medical Device: Alisha Nielson M.D. ROOM/BED: [facility] : 40 AGE/SEX: 79/F ORD.Daphne Roldan MD END OF REPORT Normal [facility] [place] Encounters Encounter Date Encounter Type Care Provider Facility Start: 03-07-2025 ambulatory Antonio Grullon acility:[facility] Start: 02-10-2025 ambulatory Antonio Grullon acility:[facility] Start: 02-09-2025 ambulatory Antonio Grullon acility:[facility] Start: 10-25-2024 End: 10-25-2024 ambulatory Ricky Biswas [facility] Work Phone: Start: 10-25-2024 End: 10-25-[address] Antonio Hyde [facility] [place] Start: 10-25-2024 End: 10-25-2024 ambulatory Antonio CARLSON Facility:[facility] Start: 09-20-2024 ambulatory Antonio CARLSON F acility:[facility] Start: 09-20-[address] Antonio carver DO -[facility] [place] Start: 04-05-2024 End: 04-05-2024 ambulatory Antonio CARLSON Facility:[facility] Start: 10-30-2023 End: 10-30-2023 ambulatory [facility] Work Phone: Start: 10-30-2023 End: 10-30-2023 Departed Referred [facility] [place] Start: 08-15-2023 End: 08-15-2023 ambulatory [facility] Work Phone: Start: 08-15-2023 End: 08-15-2023 Departed Referred [facility] Start: 05-05-2023 End: 05-05-2023 ambulatory [facility] Work Phone: Start: 05-05-2023 End: 05-05-2023 Departed Referred [facility] Start: 11-04-2022 End: 11-04-2022 ambulatory [facility] Work Phone: Start: 11-04-2022 End: 11-04-2022 Departed Referred [facility] [place] Start: 03-20-2022 End: 03-20-2022 Patient encounter procedure MARC DOYLE MD [facility] Start: 11-07-2021 End: 11-07-2021 Departed Referred [facility] Procedures Date Procedure Procedure Detail Performing Clinician Start: 08-11-1984 Appendix structure ( body structure) MARC DOYLE MD Start: 08-11-1984 Hysterectomy WESLEY DOYLE MD Bone densty 1/> site s dual photon absorptiometr MARC DOYLE MD Comment on above: 10/20/2020 Bone structure of fe mur (body structure) MARC DOYLE MD Fracture of neck of femur (disorder) MARC DOYLE MD Comment on above: 06/2008 - Left - rep aired with intermedullary gabbie Immunizations Immunization Date Immunization Notes Care Provider [facility] 06-08-2021 SARS-CoV-2 (COVID-19 ) mRNA-1273 vaccine MACR DOYLE MD [facility] Comment on above: Location History: [facility] 05-15-2021 influenza virus vaccine, unspecified formulation MARC DOYLE MD [facility] 09-07-2020 SARS-CoV-2 mRNA (tozinameran) vaccine MARC DOYLE MD [facility] Comment on above: Result Comment: 2020: TPV1 08-17-2020 SARS-CoV-2 mRNA (tozinameran) vaccine MARC DOYLE MD [facility] Comment on above: Result Comment: 2020: TPV1 06-01-2019 influenza virus vaccine, unspecified formulation MARC DOYLE MD [facility] 01-15-2019 pneumococcal polysaccharide vaccine, 23 valmadonna DOYLE MD [facility] 06-09-2018 influenza virus vaccine, unspecified formulation MARC DOYLE MD [facility] 05-13-2017 influenza virus vaccine, unspecified formulation MARC DOYLE MD [facility] 03-04-2017 pneumococcal conjuga te vaccine, 13 valmadonna DOYLE MD [facility] 05-27-2016 influenza virus vaccine, unspecified formulation MARC DOYLE MD [facility] 05-11-2016 influenza virus vaccine, unspecified formulation MARC DOYLE MD [facility] 06-07-2015 influenza virus vaccine, unspecified formulation MARC DOYLE MD [facility] 05-31-2015 influenza virus vaccine, unspecified formulation MARC DOYLE MD [facility] 03-09-2015 pneumococcal polysaccharide vaccine, 23 jessica DOYLE MD [facility] 04-17-2000 pneumococcal polysaccharide vaccine, 23 jessica DOYLE MD [facility] 04-17-2000 tetanus and diphther ia toxoids, adsorbed, preservative free, for adult use (5 Lf of tetanus toxoid and 2 Lf of diphtheria toxoid) MARC DOYLE MD [facility] Payers Date Payer Category Payer Self-pay [id number] 2024 Unknown [id number] fee [id number] Unknown [id number] [id number] Unknown [id number] [id number] [id number] Unknown [id number] [id number] [id number] Unknown [id number] [id number] [id number] Unknown [id number] [id number] [id number] Unknown [id number] 2.16.8 [id number] Social History Date Type Detail Facility Tobacco smoking stat us MSIS Unknown if ever smoked [facility] Work Phone: Start: 1940 Sex Assigned At Female [facility] Start: 12-31-2018 Tobacco smoking status Never s moked tobacco (finding) [facility] Tobacco smoking stat us MSIS Unknown if ever smoked [facility] Work Phone: Start: 11-16-2024 Sex Female (finding) [facility] Progress note 10-12-2020 Note Date & Type Note Facility 10-12-2020 Note HNO ID: [id number] Author: Mellissa Son Service: ? Author Type: Truss Puller Helper Type: Progress Notes Filed: 10/17/2020 9:18 AM [...] Off-boarding Payer: Payor: [employer] MEDICARE / Plan: [employer]NA GOLD PLUS / Product Type: HMO / Care [...] future healthcare decisions with a power of title attorney, living will, or advance directives? N/a Referrals: N/A Message Sent to Practice: NO Navigation Signature: Mellissa Son, Population Health Navigator October 12, 2020 3:[address] [facility] Progress note 10-11-2020 Note Date & Type Note Facility 10-11-2020 Note HNO ID: [id number] Author: Mellissa Son Service: ? Author Type: Truss Puller Helper Type: Progress Notes Filed: 10/12/2020 3:10 PM [...] Off-boarding Payer: Payor: [employer] MEDICARE / Plan: HUMANA GOLD PLUS / Product Type: HMO / Care [...] future healthcare decisions with a power of title attorney, living will, or advance directives? N/a Referrals: N/A Message Sent to Practice: NO Navigation Signature: Mellissa Son Population Health Navigator October 11, 2020 12:[address] [facility] Clinical Note 10-11-2020 Note Date & Type Note Facility 10-11-2020 Note Patient Outreach (AM [facility]) ABDULKADIR CHÁVEZ ([id number]) 1940 F INT Date Time Provider Department 10/11/20 MELLISSA SON During your visit today, we recorded the following information about you: Mellissa Son Population Health Navigator 10/12/2020 3:10 PM Signed [...] Off-boarding Payer: Payor: HUMANA MEDICARE / Plan: [employer]NA Quartix PLUS / Product Type: HMO / Care [...] future healthcare decisions with a power of title attorney, living will, or advance directives? N/a Referrals: N/A Message Sent to Practice: NO Navigation Signature: Mellissa Son Population Health Navigator October 11, 2020 12:45 PM Mellissa Son Population Health Navigator 10/17/2020 9:18 AM Addendum [...] for Outreach Attribution: Provider Off-boarding Payer: Payor: [employer] MEDICARE / Plan: [employer] PLUS / Product Type: HMO / Care [...] future healthcare decisions with a power of title attorney, living will, or advance directives? N/a Referrals: N/A Message Sent to Practice: NO Navigation Signature: Mellissa Son Population Health Navigator October 12, 2020 3:08 PM Allergies As of Date: 10/11/2020 Noted Allergy Reaction masks [Other] 11/07/2006 Comments: surgery type PENICILLINS 10/16/2005 2 - Rash STRAWBERRY 02/13/2007 2 - Rash SULFA (SULFONAMIDE ANTIBIOTICS) 10/16/2005 tape [Other] 11/07/2006 Date Reviewed: 12/14/2015 Reviewed by: Rosio Nixon Clinical Esthetician - Fully Assessed Reason for Visit: Population [...] without c*03/09/2015 Letter Text Encounter Status:Closed by HUY POPULATION HEALTH NAVIGATORMELLISSA on 10/12/20 [facility] Evaluation + Plan note Note Date & Type Note Facility Evaluation + Plan note Future Appointments Appointment Date:05/23/2022 01:30:00 PM Scheduled Provider:ANTONIO HYDE DO [facility] note Note Date & Type Note Facility Evaluation note No assessment information availa ble [facility] Work Phone: Hospital course Narrative Note Date & Type Note Facility Hospital course Narrative No data available for this section [facility] Hospital Discharge instructions Note Date & Type Note Facility Hospital Discharge instructions No data available for this section [facility] Progress note Note Date & Type Note Facility Progress note No data available for this section [facility] Reason for referral (narrative) Note Date & Type Note Facility Reason for referral (narrative) No reason for referral information available [facility] Work Phone: Summary Purpose Family History No Family History Records FoundNo Family History Records FoundNo Family History Records FoundNo Family History Records Found Advance Directives No Advanced Directives Records FoundNo Advanced Directives Records FoundNo Advanced Directives Records FoundNo Advanced Directives Records Found Chief Complaint and Reason for Visit Chief Complaint JAIL LAB WOR K Chief Complaint JAIL LAB WOR K LABWORK Chief Complaint LABWORK JAIL LAB WORK Chief Complaint Admit Date JAIL LAB WORK September 20 4:00am JAIL LAB WORK October 25, 2024 5 :00am Additional Source Comments INFORMATION SOURCE (unrecogn ized section and content) DATE CREATED AUTHOR 08/12/2019 [facility] emily Tignall DATE CREATED AUTHOR AUTHOR'S ORGANIZ ATION 09/26/2021 [facility] DATE CREATED AUTHOR AUTHOR'S ORGANIZ ATION 10/18/2021 [facility] ([place]) DATE CREATED AUTHOR AUTHOR'S ORGANIZ ATION 03/07/2025 [facility] Goals (unrecognized section and content) Goals may be documented in a n alternate section No data available for this sectionGoals may be documented in an alternate sectionGoals may be documented in an alternate sectionGoals may be documented in an alternate sectionGoals may be documented in an alternate sectionGoals may be documented in an alternate section Care Team (unrecognized sect ion and content) Care Team Personnel Name: ANTONIO HYDE DO Position: P4 Physician - Primary Care Med Service: Active Provider Member Role: Primary Care Physician Address: Address: [address] [address]- Care Team Related Persons Name: RANJITH CHÁVEZ Name: JEF TAVERAS Address: [address] [place], [place] [id number] [place] Care Teams (unrecognized sec tion and content) Team Status: Active Member Role Status Dates Ricky CARLSON Primary Care Provider Active Team Status: Active Member Role Status Dates Ricky CARLSON Primary Care Provider Active Start: September 20, 2024 Dr. Antonio CARLSON, DO Attending Provider Activ e Start: September 20, 2024 Dr. Antonio CARLSON, DO Referring Provider Activ e Start: September 20, 2024 Team Status: Inactive Member Role Status Dates Ricky CARLSON Primary Care Provider Active Start: October 25, 2024 End: October 25, 2024 Dr. Antonio CARLSON, DO Attending Provider Activ e Start: October 25, 2024 End: October 25, 2024 Team Status: Inactive Member Role Status Dates Ricky CARLSON Primary Care Provider Active Dr. Antonio CARLSON, DO Attending Provider, Refe rring Provider Active Team Status: Inactive Member Role Status Dates Ricky CARLSON Primary Care Provider Active Dr. Antonio CARLSON, DO Attending Provider Activ e FOR RECORDS PERTAINING TO PATIENTS WHO ARE [...] BE BASED ON THE PRIMARY CLINICAL RECORDS. [employer] provides no warranty or guarantee of the accuracy or completeness of information in this document.
[2025-03-07 09:11] LABS: Hematocrit 30.7 % (37-47); Hemoglobin 10.0 g/dL (12.0-15.0); Mean Corp Hgb Conc 32.6 g/dL (32-36); Mean Corpuscular Volume 93.3 fL (81-99); Mean Platelet Vol. 10.7 fl (6.2-12.0); Platelet Count 285 K/mm3 (150-450); RBC Distribution Width CV 12.4 % (11.6-14.6); RBC Distribution Width SD 42.6 fl (35.1-43.9); Red Blood Count 3.29 M/mm3 (4.2-5.4); White Blood Count 7.7 K/mm3 (4.4-11.0)
[2025-03-07 09:46] LABS: AST(SGOT) 38 U/L (<=31); Alanine Aminotransfer ALT/SGPT 50 U/L (<=34); Albumin, Serum 3.5 g/dL (3.4-4.8); Alkaline Phosphatase 57 U/L (35-104); Anion Gap 11 (5-15); BUN 25 mg/dL (4-19); BUN/Creat Ratio 33.5 RATIO (10-20); Calcium,Total 9.5 mg/dL (7.6-11.0); Carbon Dioxide 22.2 mmol/L (21.0-32.0); Chloride 107 mmol/L (98-108); Globulin 2.8 g/dL (2.2-4.2); Glucose 139 mg/dL (70-99); Potassium 4.5 mmol/L (3.3-5.1)
[2025-03-07 10:13] LABS: Ferritin 171 ng/mL (22-378); Iron 67 ug/dL (50-170); Iron Binding Capacity,Unsat 162 ug/dL (228-428); T3 Total - Triiodothyronine 1.26 ng/mL (0.80-2.00); T4 Total, Thyroxin 7.6 ug/dL (4.8-13.9); Vitamin D,25 Hydroxy 63.4 ng/mL (30-100)
[2025-03-07 10:20] LABS: Iron Binding Capacity,Total 229 ug/dL (250-450)
== END ==
LOC: OLS.ACH2 05:00
PROVIDERS: PCP Family Medicine
DX: N18.30 Chronic kidney disease, stage 3 unspecified (principal)
CPT/HCPCS: 36415; 80053; 82306; 82728; 83540; 83550; 84436; 84443; 84480; 85027